=== PATIENT | male | born 1975 | race Caucasian/White ===

== ENCOUNTER 2025-04-27 17:02 | Inpatient (IN) | payer BC, SELFPAY ==
[2025-04-27] VITALS (23 sets, daily range): BP systolic 111–138; BP diastolic 72–82; PULSE 93–100; RESP 12–23; TEMP 36.8; O2SAT 92–98; BMI 29.3
--- NOTE | ~2025-04-27 | CT_ITS ---
CTA CHEST ABDOMEN PELVIS CLINICAL HISTORY: hx infrarenal AAA, lower abdominal pain . COMPARISON: CTA chest 01/05/2019 TECHNIQUE: Helical CT performed from thoracic inlet to symphysis pubis IV contrast information not listed in PACS Coronal, sagittal reformats. Multiplanar MIPS CT images acquired with automatic exposure control for dose reduction DLP: 971 mGy-cm FINDINGS: CHEST- Thoracic Aorta: No dissection. Fusiform ectasia of ascending segment at 4.5 cm. Pulmonary arteries: Normal caliber. Lungs/Pleura: Clear. Heart: Unremarkable. Tracheobronchial tree: Patent. Nodes: No enlarged nodes. Bones: No acute bony abnormality. Soft tissues: Unremarkable. ABDOMEN/PELVIS- CTA Abdominal aorta: No aneurysm or dissection. Common iliac arteries: Patent. External iliac arteries: Patent. Hypogastric arteries: Patent. CFAs: Patent. Proximal visualized SFAs and profundas: Patent. Celiac: Patent. Severe median arcuate ligament attenuation. SMA: Patent. ZENAIDA: Patent. Renal arteries: Patent. NON-CTA Liver: Steatosis. Gallbladder: Unremarkable. Spleen: Unremarkable. Pancreas: Unremarkable. Adrenal glands: Unremarkable. Kidneys: Right kidney- No hydronephrosis. No renal stones. Left kidney- No hydronephrosis. No renal stones. Circumaortic renal vein. Distal esophagus/stomach: Unremarkable. Small bowel loops: Normal caliber and wall thickness. Colon: Diverticula. Sigmoid wall thickening, surrounding inflammation, small regional free air Normal caliber and wall thickness. Normal RLQ appendix. Nodes: No enlarged nodes. Peritoneum: No ascites. No free air. Urinary bladder: Unremarkable. Prostate: Unremarkable. Bones: No acute bony abnormality. Soft tissues: Unremarkable. IMPRESSION: CHEST- 1. No acute cardiopulmonary findings. 2. 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 (Previous reported measurement of 4.8 cm inaccurate) ABDOMEN/PELVIS- 1. Sigmoid diverticulitis, complicated by perforation. No abscess. 2. No other acute abnormality. Reviewed, dictated and finalized at location R. IMPRESSION: CHEST- 1. No acute cardiopulmonary findings. 2. Fusiform ectasia of ascending thoracic aorta 4.5 cm not significantly gonzalez ed. (Previous reported measurement of 4.8 cm inaccurate) ABDOMEN/PELVIS- 1. Sigmoid diverticulitis, complicated by perforation. No abscess. 2. No other acute abnormality.
--- OUTSIDE RECORDS SUMMARY | 2025-04-27 17:58 | XMS_ITS | Encounter Summary ---
Author Organization [facility] Healthcare Address [address] [place] [address] Care Team Providers Care Nut Dehydrator Operator Name Role Phone No, Physician Primary Care Provider Chris Hercules MD Unavailable [phone] Unknown, Notinfile Primary Care Provider Unavail able Cassi Jennings MD Primary Care Provider Carlos De La Fuente MD Unavailable [phone] Encounter Details Date Type Department Care Team (Late st Contact Info) Description 02/01/2021 Telephone [facility] - Imaging [address] [place] [address] Transcribed Order, Provider Social History Tobacco Use Types Packs/Day Years Used Date Smoking Tobacco: Never Smokeless Tobacco: Never Alcohol Use Standard Drinks/Week Comments Yes 0 (1 standard drink = 0.6 oz pur e alcohol) occasional use Sex and Gender Information Value Date Recorded Sex Assigned at Not on file Legal Sex Male 9:33 AM CDT Gender Identity Male 05/20/2020 2:46 PM [employer] Sexual Orientation Straight 05/20/2020 2: 46 PM [employer] documented as of this encounter Plan of Treatment Not on file documented as of this encounter Visit Diagnoses Not on filedocumented in this encounter Care Teams Nut Dehydrator Operator Relationship Specialty Start Date End Date No, Physician PCP - General 01/02/18 03/13/22 Unknown, Notitamile PCP - General 03/14/22 07/12/24 Cassi Jennings MD [address] [address] PCP - General Family Medicine 07/13/24 Chris Hercules MD Consulting Physician Cardiology 02/02/21 02/21/25 Carlos De La Fuente MD [address] [address] Referring Physician Cardiology 02/22/25 documented as of this encounter
--- OUTSIDE RECORDS SUMMARY | 2025-04-27 17:58 | XMS_ITS | Clinical Summary ---
Author Organization [facility] [address] Address [address] [place] [address] Care Team Providers Care Junk Dealer Name Role Phone Cassi Jennings MD Primary Care Provider Carlos De La Fuente MD Unavailable [phone] Allergies Active Allergy Reactions Criticality Noted Date Comments Mushroom Diarrhea,Other (See comments) Low [address] (NexIUM) 20 mg capsule Take 1 capsule (20 mg total) by mouth daily before breakfast Active carvediloL (COREG) 25 mg tablet TAKE 1 TABLET(25 MG) BY MOUTH TWICE DAILY WITH MEALS 180 tablet 2 03/30/20 25 Active carvediloL (COREG) 25 mg tablet Take 1 tablet (25 mg total) by mouth 2 (two) times a day with meals 180 tablet 2 07/13/19 25 025 Discontinued Active Problems Problem Noted Date Diagnosed Date Mixed hyperlipidemia 03/06/2022 H/O cardiac arrest 02/20/2021 Elevated blood pressure reading 08/03/2019 H/O cardiomyopathy 07/22/2018 VF (ventricular fibrillation) 04/08/2018 Nonsustained ventricular tachycardia 04/08/2018 Nonischemic cardiomyopathy 04/08/2018 Ascending aortic aneurysm 04/08/2018 Bicuspid aortic valve 04/08/2018 Aortic insufficiency due to bicuspid aortic valv e 04/08/2018 ICD (implantable cardioverte r-defibrillator), single, in situ 01/03/2018 Overview (05/25/2018): [employer] VVI Inogen ICD implanted on 01/03/18 for VF. Fannie - Eeorzvhw-Xuglliq-Jxzq Seizure disorder 01/02/2018 Assessment & Plan (01/02/2018 2:21 PM CDT): -no previous hx seizure disorder but at least 2 witness seizures 12/28. Seen by neurology at OSH; EEG unremarkable; started on Keppra -will continue Keppra bid GERD (gastroesophageal reflux disease) 8 Assessment & Plan (01/02/2018 2:22 PM CDT): -asymptomatic; continue ppi Resolved Problems Problem Noted Date Diagnosed Date Resolved Date Dyslipidemia 02/20/2021 03/18/2023 Cardiac arrest, cause unspecified 01/02/2018 03/18/2023 Assessment & Plan (01/02/2018 2:21 PM CDT): -cause unclear; reported v fib arrest s/p defib 12/28; currently asymptomatic -tele, EP consult -cardiac MRI -EP study/possible AICD in am -cbc, bmp, tsh, ua, mag Encounters Date Type Department Care Team Description 02/22/2025 10:30 AM CDT Office Visit Cardiovascular and Thoracic Surgery [address] [facility] [facility] [place] [address] Artem Hawthorne MD Aneurysm of ascending aorta without rupture (Primary Dx); Aortic insufficiency due to bicuspid aortic valve 02/22/2025 9:16 AM CDT - 02/22/2025 11:59 PM CDT Hospital Encounter [facility] - Imaging [address] [place] [address] Aortic insufficiency due to bicuspid aortic valve; VF (ventricular fibrillation); Aneurysm of ascending aorta without rupture; H/O cardiomyopathy; Nonsustained ventricular tachycardia (HCC); Nonischemic cardiomyopathy (HCC); Bicuspid aortic valve; H/O cardiac arrest Discharge Disposition: Discharge to home or self care 02/22/2025 8:32 AM CDT - 02/22/2025 11:59 PM CDT Hospital Encounter [facility] Cardiac Testing [address] [facility] [place] [address] Aortic insufficiency due to bicuspid aortic valve; VF (ventricular fibrillation); Aneurysm of ascending aorta without rupture; H/O cardiomyopathy; Nonsustained ventricular tachycardia (HCC); Nonischemic cardiomyopathy (HCC); Bicuspid aortic valve; H/O cardiac arrest Discharge Disposition: Discharge to home or self care 02/08/2025 8:30 AM CDT Office Visit [facility] Cardiology [address] [place] [address] Carlos De La Fuente MD ICD (implantable cardioverter-defibrill ator), single, in situ (Primary Dx); H/O cardiomyopathy; Aortic insufficiency due to bicuspid aortic valve 02/02/2025 Orders Only Ar[facility] [address] [facility] [address] [facility] [address] [place] [address] Oh Art MD VF (ventricular fibrillation) (HCC) (Primary Dx) 02/01/2025 12:45 PM CDT Ancillary Procedure [facility] [address] [facility] [address] [place] [address] ICD (implantable cardioverter-defibrill ator), single, in situ (Primary Dx); VF (ventricular fibrillation) (HCC) from Last 3 Months Surgical History Surgery Date Site/Laterality Comments CARDIAC CATHETERIZATION INSERT / REPLACE / REMOVE PACEMAKER 01/03/2018 [employer] HERNIA REPAIR May 24 VASECTOMY 2011 Medical History Medical History Date Comments Cardiac arrest GERD (gastroesophageal reflux disease) Cardiomyopathy Ventricular tachycardia (HCC) Non-ischemic cardiomyopathy (HCC) Aortic aneurysm Congenital heart disorder Valvular disease Heart disease 2018 Kidney stone once in 2006 Family History Medical History Relation Name Comments Hypertension Brother 1 Hypertension Brother 2 Elvis [place] Hypertension Father Casey Barber Diabetes Maternal Grandmother Lay Burks Hypertension Mother Qing Stacy Alzheimer's disease Paternal Grandmother Soco Barber Memory loss Paternal Grandmother Soco Barber Relation Name Status Comments Brother 1 Alive Brother 2 Elvis [place] Alive Father Casey Stacy Alive Maternal Grandmother Lay Burks Mother Qing Stacy Alive Paternal Grandmother Soco Barber Alive Social History Tobacco Use Types Packs/Day Years Used Date Smoking Tobacco: Never Cigarettes 0.3 0.3 Cigars Passive Smoke Exposure: Yes Smokeless Tobacco: Never Tobacco Cessation:Counseling Given: Not Answered Comments:Occasional cigar Alcohol Use Standard Drinks/Week Comments Yes 0 (1 standard drink = 0.6 oz pur e alcohol) occasional use AUDIT-C Answer Date Recorded Q1: How often do you have a drink containing alc ohol? 2-4 times a month 02/28/2023 Q2: How many drinks containi ng alcohol do you have on a typical day when you are drinking? 1 or 2 02/28/2023 Q3: How often do you have si x or more drinks on one occasion? Never 02/28/2023 Sex and Gender Information Value Date Recorded Sex Assigned at Not on file Legal Sex Male 9:33 AM CDT Gender Identity Male 05/20/2020 2:46 PM CASING SOAKER Sexual Orientation Straight 05/20/2020 2: 46 PM CASING SOAKER Obstetrics History Last Filed Vital Signs Vital Sign Reading Time Taken Comments Blood Pressure 123/82 02/22/2025 11:20 AM CDT Pulse 55 02/22/2025 11:20 AM CDT Regu lar Temperature 36.5 C (97.7 F) 01/25/2020 9:06 AM CDT Respiratory Rate 16 02/22/2025 11:20 AM CDT Oxygen Saturation 96% 02/08/2025 8:14 AM CDT Inhaled Oxygen Concentration - - Weight 108.9 kg (240 lb) 02/22/2025 11:20 AM CDT Height 195.6 cm (6' 5) 02/08/2025 8:14 AM CDT Body Mass Index 28.46 02/08/2025 8:14 AM CDT Plan of Treatment Health Maintenance Due Date Last Done Comments Colon Cancer Screening-Colonoscopy 1975 Depression Screening 1975 Hepatitis C Screening 1975 Regular Well Visit/Exam 18-64 1993 Influenza Vaccine (#1) 2025 7, 03/22/2016, 03/21/2016, Additional history exists DTaP/Tdap/Td Vaccine (3 - Td or Tdap) 01/05/2034 01/06/2024, 01/18/2009, 01/09/1999 Hepatitis B Screening Completed 09/20/2014 , 12/18/2013, 11/10/2013 Pneumococcal vaccine <65 Aged Out No longer eligible based on patient's age to complete this topic Medical Devices Implanted Type Area Music Executive Device Identifier Shelf Expiration Date Model / Serial / Lot [employer] C.R.M. D140 Inogen Enduralife Easyview 5.37x7.36cm Implantable Extend - [id number] - [id number] Implanted:Qty: 1 on 01/03/2018 by Abhay Greco MD at [facility] ICD Left: Heart [employer] C.R.M. [id number] 02/13/2018 D140 / [id number] / [employer] Cassie 296 Endotak Dexter 64cm 4 Site 2 Coil Active Df-4 Terminal - [id number] Implanted:Qty: 1 on 01/03/2018 by Abhay Greco MD at [facility] Lead Left: Heart [employer] Cassie [id number] 07/18/2018 296 / / Procedures Procedure Name Priority Date/Time Associated Diagnosis Comments CTA CHEST W WO CONTRAST Schedule Routine, Read Routine (OP Routine) 02/22/2025 9:55 AM CDT Aortic insufficiency due to bicuspid aortic valve VF (ventricular fibrillation) Aneurysm of ascending aorta without rupture H/O cardiomyopathy Nonsustained ventricular tachycardia (HCC) Nonischemic cardiomyopathy (HCC) Bicuspid aortic valve H/O cardiac arrest TRANSTHORACIC ECHO (TTE) COMPLETE W DOPPLER/CF WO CONTRAST Routine 02/22/2025 9:17 AM CDT Aortic insufficiency due to bicuspid aortic valve VF (ventricular fibrillation) Aneurysm of ascending aorta without rupture H/O cardiomyopathy Nonsustained ventricular tachycardia (HCC) Nonischemic cardiomyopathy (HCC) Bicuspid aortic valve H/O cardiac arrest DEVICE CHECK - REMOTE Routine 02/01/2025 2:26 PM CDT VF (ventricular fibrillation) from Last 3 Months Results * CTA Chest W WO Contrast (02/22/2025 9:55 AM CDT) Anatomical Region Laterality Modality Chest N/A Computed Tomogra phy 02/22/2025 10:2 7 AM CDT Impressions 02/22/2025 10:27 AM CDT No change in ascending aortic dilatation with maximal measurement of the aorta at 4.5 x 4.6 cm at the level of the main pulmonary artery. No evidence for instability. Electronically signed by: Alexis Amor M.D. Narrative 02/22/2025 10:27 AM CDT Examination: CT angiogram of the chest with and without intravenous contrast HISTORY: Evaluate dilated ascending aorta TECHNIQUE: Standard pre and postcontrast CT of the chest was performed prior to and after the administration of 120 mL of Optiray 350 intravenous contrast. Images were sent to three-dimensional workstation for further evaluation. FINDINGS: Comparison is made to a prior CT of 08/14/2022. No supraclavicular, axillary or mediastinal lymphadenopathy is seen. Note is made of a pacemaker with the lead overlying the right ventricle. There is no pulmonary embolism. No pleural or pericardial effusion. The heart size is mildly enlarged but unchanged when compared to the prior study. There is no evidence of aortic instability. Again seen is dilatation of the ascending aorta. The following measurements are obtained orthogonal to the long axis: 1. Sinuses of Valsalva 3.9 x 4.3 x 4.3 cm. Preliminary measured today, these numbers are unchanged. 2. Sinotubular junction 4.2 x 4.0 cm unchanged. 3. Ascending aorta at the level of the main pulmonary artery unchanged at 4.5 x 4.6 cm. 4. Descending aorta 2.5 x 2.4 cm. Images of the upper abdomen show normal adrenal glands. The bone windows are unremarkable. Procedure Note Alexis Amor MD - 02/22/2025 Examination: CT angiogram of the chest with and without intravenous contrast HISTORY: Evaluate dilated ascending aorta TECHNIQUE: Standard pre and postcontrast CT of the chest was performed prior to and after the administration of 120 mL of Optiray 350 intravenous contrast. Images were sent to three-dimensional workstation for further evaluation. FINDINGS: Comparison is made to a prior CT of 08/14/2022. No supraclavicular, axillary or mediastinal lymphadenopathy is seen. Note is made of a pacemaker with the lead overlying the right ventricle. There is no pulmonary embolism. No pleural or pericardial effusion. The heart size is mildly enlarged but unchanged when compared to the prior study. There is no evidence of aortic instability. Again seen is dilatation of the ascending aorta. The following measurements are obtained orthogonal to the long axis: 1. Sinuses of Valsalva 3.9 x 4.3 x 4.3 cm. Preliminary measured today, these numbers are unchanged. 2. Sinotubular junction 4.2 x 4.0 cm unchanged. 3. Ascending aorta at the level of the main pulmonary artery unchanged at 4.5 x 4.6 cm. 4. Descending aorta 2.5 x 2.4 cm. Images of the upper abdomen show normal adrenal glands. The bone windows are unremarkable. IMPRESSION: No change in ascending aortic dilatation with maximal measurement of the aorta at 4.5 x 4.6 cm at the level of the main pulmonary artery. No evidence for instability. Electronically signed by: Alexis Amor M.D. us Theresa Verduzco HYDROMETEOROLOGIST IMG CT PROCEDURES Final R esult * TRANSTHORACIC ECHO (TTE) COMPLETE W DOPPLER/CF WO CONTRAST (02/22/2025 9:17 AM CDT) Estimated EF 50-55 % CONS SCIMAGE Anatomical Region Laterality Modality Ultrasound 02/22/2025 8:35 AM CDT Narrative 02/22/2025 10:00 AM CDT [address] [place] [address] ECHOCARDIOGRAM Patient Name: PRASANNA ABRBER : 1975 (49y 9m) Gender: M Study Date: 02/22/2025 08:35:22 AM Ht(Inch): 77 Wt(Lb): 248.02 BSA: 2.47 Elevator Operator Service: Location: OPT Order Provider: THERESA VERDUZCO BMI: 29.41 BP: 122/78 Ref Provider: THERESA VERDUZCO - PROCEDURES: Echocardiographic Report: Transthoracic Echocardiogram with complete 2D, M-Mode, Spectral and Color Flow Doppler examination. INDICATIONS: Q23.1 Congenital insufficiency of aortic valve, Q23.81 Bicuspid aortic valve, I49.01 Ventricular fibrillation, I71.21 Aneurysm of the ascending aorta, without rupture, Z86.79 Personal history of other diseases of the circulatory system, I47.29 Other ventricular tachycardia, I42.8 Other cardiomyopathies, Q23.81 Bicuspid aortic valve, and Z86.74 Personal history of sudden cardiac arrest. MEASUREMENTS: 2D/MM Value Range Doppler Value Range IVSd 2D 1.15 cm [ 0.60 - 1.00 ] AV Peak David 1.44 m/s [ 1.00 - 1.70 ] LVIDd 2D 5.75 cm [ 4.20 - 5.80 ] AV Peak PG 8.3 mmHg LVIDs 2D 4.25 cm [ 2.50 - 4.00 ] AV Mean PG 4.4 mmHg LVPWd 2D 1.00 cm [ 0.60 - 1.00 ] AV VTI 27.2 cm Estimated EF 50-55 % REID VTI 3.4 cm2 LA Dimension 2D 3.44 cm [ 3.00 - 4.00 ] LVOT Peak David 0.85 m/s [ 0.70 - 1.10 ] AoR Diam 2D 3.77 cm [ 3.10 - 3.70 ] LVOT Diam 2.4 cm AoR Diam 2D Index 1.53 LVOT Peak PG 2.9 mmHg RA Volume 16.30 ml LVOT VTI 20.7 cm LA Volume Index 20.60 ml/m2 [ 16.00 - 34.00 ] MV Peak PG 2.9 mmHg TAPSE 1.84 cm [ 1.71 - 5.00 ] MV Mean PG 1.3 mmHg MV E Peak David 0.8 m/s [ 0.6 - 1.3 ] MV A Peak David 0.7 m/s [ 1.0 - 1.2 ] MV PHT 94.0 ms [ 20.0 - 100.0 ] MV Decel Time 200.0 ms [ 104.0 - 258.0 ] MVA PHT 2.3 ms MV E/A Ratio 1.1 TR Peak David 2.0 m/s [ 1.0 - 2.8 ] TR Peak PG 20 mmHg RVSP 22.7 mmHg [ 10.0 - 36.0 ] RA Pressure 3.0 mmHg PV Peak David 0.9 m/s [ 0.4 - 0.8 ] PV Peak PG 3.1 mmHg Lat E` David 0.11 m/s [ 0.10 - 0.15 ] Septal E` 0.08 m/s [ 0.08 - 0.15 ] E/E` 7.27 RV S` 0.12 m/s 2D/MM Value Range Doppler Value Range - FINDINGS: BP: Blood pressure: 122/78 mmHg. Left Ventricle: Low normal global left ventricular systolic function. Ejection Fraction is estimated at 50-55 %. Normal left ventricular diastolic function. Mild enlargement of left ventricle (LVIDd 5.75cm, LVIDs 4.25cm). Mild concentric left ventricular hypertrophy. GLPS is mildly reduced (-14.3%). Right Ventricle: Normal right ventricular systolic function. Normal right ventricular size. Device wire(s) noted in RA/RV. Left Atrium: The left atrium is normal in size. Right Atrium: The right atrium is normal in size. Linear artifact in right atrium suggestive of catheter, pacer lead, or ICD lead. Atrial Septum: Normal appearing atrial septum. Cannot exclude PFO by atrial septal color Doppler interrogation. Mitral Valve: Normal appearance of the mitral valve leaflets. Mitral stenosis is absent. Mild mitral valve regurgitation. Aortic Valve: Bicuspid aortic valve. Aortic cusps appear mildly calcified. There is no aortic stenosis. Moderate aortic valve regurgitation (AR PHT 450 msec); consider advanced imaging (JAUN vs CTA) to clarify severity of AV disease if clinically indicated. Tricuspid Valve: Normal appearance of the tricuspid leaflets. Mild tricuspid regurgitation. Normal right ventricular systolic pressure. Pulmonic Valve: Grossly normal appearing pulmonic valve. Pulmonic valve not well visualized. There is no pulmonic stenosis. Trace pulmonic regurgitation. Pericardium: Normal appearing pericardial thickness. No significant pericardial effusion. Aortic Root and Aorta: Mild aortic root enlargement (3.8cm at SoV). Mild ascending aortic enlargement (4.6 cm). Aortic Arch: Grossly normal aortic arch. IVC: Normal appearance of the inferior vena cava. CONCLUSIONS: 1. Low normal global left ventricular systolic function. Ejection Fraction is estimated at 50-55 %. Normal left ventricular diastolic function. Mild enlargement of left ventricle (LVIDd 5.75cm, LVIDs 4.25cm). Mild concentric left ventricular hypertrophy. GLPS is mildly reduced (-14.3%). 2. Normal right ventricular systolic function. Normal right ventricular size. Device wire(s) noted in RA/RV. 3. Normal appearance of the mitral valve leaflets. Mitral stenosis is absent. Mild mitral valve regurgitation. 4. Bicuspid aortic valve. Aortic cusps appear mildly calcified. There is no aortic stenosis. Moderate aortic valve regurgitation (AR PHT 450 msec); consider advanced imaging (JAUN vs CTA) to clarify severity of AV disease if clinically indicated. 5. Normal appearance of the tricuspid leaflets. Mild tricuspid regurgitation. Normal right ventricular systolic pressure. 6. Mild aortic root enlargement (3.8cm at SoV). Mild ascending aortic enlargement (4.6 cm). Electronically Signed By: Rasta Zhong MD PhD 02/22/2025 9:59:32 AM CDT Procedure Note Rasta Zhong MD PhD - 02/22/2025 [address] [place] [address] ECHOCARDIOGRAM Patient Name: PRASANNA BARBER : 1975 (49y 9m) Gender: M Study Date: 02/22/2025 08:35:22 AM Ht(Inch): 77 Wt(Lb): 248.02 BSA: 2.47 Elevator Operator Service: Location: OPT Order Provider: THERESA VERDUZCO BMI: 29.41 BP: 122/78 Ref Provider: THERESA VERDUZCO - PROCEDURES: Echocardiographic Report: Transthoracic Echocardiogram with complete 2D,M-Mode, Spectral and Color Flow Doppler examination. INDICATIONS: Q23.1 Congenital insufficiency of aortic valve, Q23.81 Bicuspid aorticvalve, I49.01 Ventricular fibrillation, I71.21 Aneurysm of the ascending aorta, withoutrupture, Z86.79 Personal history of other diseases of the circulatory system, I47.29 Otherventricular tachycardia, I42.8 Other cardiomyopathies, Q23.81 Bicuspid aortic valve,and Z86.74 Personal history of sudden cardiac arrest. MEASUREMENTS: 2D/MM Value Range DopplerValue Range IVSd 2D 1.15 cm [ 0.60 - 1.00 ] AV Peak Vel1.44 m/s [ 1.00 - 1.70 ] LVIDd 2D 5.75 cm [ 4.20 - 5.80 ] AV Peak PG8.3 mmHg LVIDs 2D 4.25 cm [ 2.50 - 4.00 ] AV Mean PG4.4 mmHg LVPWd 2D 1.00 cm [ 0.60 - 1.00 ] AV VTI27.2 cm Estimated EF 50-55 % REID VTI3.4 cm2 LA Dimension 2D 3.44 cm [ 3.00 - 4.00 ] LVOT Peak Vel0.85 m/s [ 0.70 - 1.10 ] AoR Diam 2D 3.77 cm [ 3.10 - 3.70 ] LVOT Diam2.4 cm AoR Diam 2D Index 1.53 LVOT Peak PG2.9 mmHg RA Volume 16.30 ml LVOT VTI20.7 cm LA Volume Index 20.60 ml/m2 [ 16.00 - 34.00 ] MV Peak PG2.9 mmHg TAPSE 1.84 cm [ 1.71 - 5.00 ] MV Mean PG1.3 mmHg MV E Peak David 0.8 m/s [ 0.6 - 1.3 ] MV A Peak David 0.7 m/s [ 1.0 - 1.2 ] MV PHT 94.0 ms [ 20.0 - 100.0 ] MV Decel Time 200.0 ms [ 104.0 - 258.0 ] MVA PHT 2.3 ms MV E/A Ratio 1.1 TR Peak David 2.0 m/s [ 1.0 - 2.8 ] TR Peak PG 20 mmHg RVSP 22.7 mmHg [ 10.0 - 36.0 ] RA Pressure 3.0 mmHg PV Peak David 0.9 m/s [ 0.4 - 0.8 ] PV Peak PG 3.1 mmHg Lat E` David 0.11 m/s [ 0.10 - 0.15 ] Septal E` 0.08 m/s [ 0.08 - 0.15 ] E/E` 7.27 RV S` 0.12 m/s 2D/MM Value Range DopplerValue Range - FINDINGS: BP: Blood pressure: 122/78 mmHg. Left Ventricle: Low normal global left ventricular systolic function.Ejection Fraction is estimated at 50-55 %. Normal left ventricular diastolic function. Mildenlargement of left ventricle (LVIDd 5.75cm, LVIDs 4.25cm). Mild concentric leftventricular hypertrophy. GLPS is mildly reduced (-14.3%). Right Ventricle: Normal right ventricular systolic function. Normal rightventricular size. Device wire(s) noted in RA/RV. Left Atrium: The left atrium is normal in size. Right Atrium: The right atrium is normal in size. Linear artifact in rightatrium suggestive of catheter, pacer lead, or ICD lead. Atrial Septum: Normal appearing atrial septum. Cannot exclude PFO byatrial septal color Doppler interrogation. Mitral Valve: Normal appearance of the mitral valve leaflets. Mitralstenosis is absent. Mild mitral valve regurgitation. Aortic Valve: Bicuspid aortic valve. Aortic cusps appear mildly calcified.There is no aortic stenosis. Moderate aortic valve regurgitation (AR PHT 450 msec);consider advanced imaging (JAUN vs CTA) to clarify severity of AV disease if clinicallyindicated. Tricuspid Valve: Normal appearance of the tricuspid leaflets. Mildtricuspid regurgitation. Normal right ventricular systolic pressure. Pulmonic Valve: Grossly normal appearing pulmonic valve. Pulmonic valvenot well visualized. There is no pulmonic stenosis. Trace pulmonic regurgitation. Pericardium: Normal appearing pericardial thickness. No significantpericardial effusion. Aortic Root and Aorta: Mild aortic root enlargement (3.8cm at SoV). Mildascending aortic enlargement (4.6 cm). Aortic Arch: Grossly normal aortic arch. IVC: Normal appearance of the inferior vena cava. CONCLUSIONS: 1. Low normal global left ventricular systolic function. Ejection Fractionis estimated at 50-55 %. Normal left ventricular diastolic function. Mild enlargementof left ventricle (LVIDd 5.75cm, LVIDs 4.25cm). Mild concentric left ventricularhypertrophy. GLPS is mildly reduced (-14.3%). 2. Normal right ventricular systolic function. Normal right ventricularsize. Device wire(s) noted in RA/RV. 3. Normal appearance of the mitral valve leaflets. Mitral stenosis isabsent. Mild mitral valve regurgitation. 4. Bicuspid aortic valve. Aortic cusps appear mildly calcified. There isno aortic stenosis. Moderate aortic valve regurgitation (AR PHT 450 msec); consideradvanced imaging (JAUN vs CTA) to clarify severity of AV disease if clinicallyindicated. 5. Normal appearance of the tricuspid leaflets. Mild tricuspidregurgitation. Normal right ventricular systolic pressure. 6. Mild aortic root enlargement (3.8cm at SoV). Mild ascending aorticenlargement (4.6 cm). Electronically Signed By: Rasta Zhong MD PhD 02/22/2025 9:59:32 AM CDT Theresa Verduzco NP CV ECHO PROCEDURES Final Result * DEVICE CHECK - REMOTE (02/01/2025 2:26 PM CDT) Anatomical Region Laterality Modality Other Narrative 02/15/2025 10:40 AM CDT Table formatting from the original result was not included. ICD CHECK (REMOTE) Patient ID: Prasanna Barber is a 49 y.o. male This patient received a [employer] ICD. They had a remote transmission on 02/01/2025. Device implant indications: VF Interrogation of the patient's device demonstrates the following: Presenting EGM: V sensing @ 80 bpm Original Device Settings Right Ventricle Sensitivity (mV) Auto mV Pacing Outputs 2.5 V @ 0.5 ms Testing Measurements Right Ventricle Sensitivity (mV) 22.8 mV Impedence (Ohms) 649 ohms High Voltage Impedence 60 ohms Pace Threshold Not done Pacing % 0 % Battery Status: 9.5 years to ABRIL with Charge Time 10.4 seconds Episodes last 90 days/Comments: No ventricular high rate NORMAL DEVICE FUNCTION PROGRAMMED Medications: Anti-coagulant(s): None Anti-arrhythmic(s): Coreg 25 twice daily PLAN: 1) [employer] ICD evaluation. 2) [employer] remote transmission scheduled in 3 months. 3) Programming appropriate for device measurements Leticia Martinez RN Oh Art MD CV CARDIAC SERVICES PRO CEDURES Final Result from Last 3 Months Insurance [facility] [employer] [facility] [employer] Advance Directives For more information, please contact: [phone] * Full Code (Latest Code Status on File) Date Activated Date Inactivated Comments 01/02/2018 4:18 PM 01/04/2018 4:40 PM Care Teams Junk Dealer Relationship Specialty Start Date End Date Cassi Jennings MD [address] [place] [id number] PCP - General Family Medicine 07/13/24 Carlos De La Fuente MD [address] [place] [id number] Referring Physician Cardiology 02/22/25
--- OUTSIDE RECORDS SUMMARY | 2025-04-27 17:58 | XMS_ITS | Encounter Summary ---
Author Organization [facility] Address [address] [place] [address] Care Team Providers Care Commercial Leasing Manager Name Role Phone Cassi Jennings MD Primary Care Provider + Carlos De La Fuente MD Unavailable [phone] Oh Art MD Unavailable Encounter Details Date Type Department Care Team (Late st Contact Info) Description 01/29/2024 Prep for Procedure [facility] Day Services [address] [place] [address] [place] [address] [address] Social History Tobacco Use Types Packs/Day Years Used Date Smoking Tobacco: Never Cigars Passive Smoke Exposure: Yes Smokeless Tobacco: Never Comments:Occasional Cigar Alcohol Use Standard Drinks/Week Comments Yes 2 (1 standard drink = 0.6 oz pur e alcohol) social PHQ-2 Answer Date Recorded Patient Health Questionnaire-2 Score 1 01/06/2024 Sex and Gender Information Value Date Recorded Sex Assigned at Not on file Legal Sex Male 7:15 PM CDT Gender Identity Not on file Sexual Orientation Not on file documented as of this encounter Plan of Treatment Upcoming Encounters Date Type Department Care Team (Late st Contact Info) Description 05/07/2025 8:30 AM SUPER[employer]OR [employer] Office Visit [facility] Family Medicine - [place] [address] [facility] [address] [place] [address] Cassi Jennings MD [address] [place] [address] documented as of this encounter Results * ECG 12-Lead (01/31/2024 10:08 AM CDT) 01/31/2024 10:0 8 AM CDT Narrative [facility] ([facility]) RAD - 01/31/2024 5:18 PM CDT [facility] Test Date: 2024-01-31 Pat Name: CECILY BALTIMORE Department: 85 Room: Gender: Male Netezza Architect: : 1975 Requested By: BRIGHT ACEVEDO Order Number: [id number] Reading MD: Matthias Prieto Measurements Intervals [place] Rate: 65 P: 51 ND: 199 QRS: 42 QRSD: 102 T: 40 QT: 382 QTc: 398 Interpretive Statements SINUS RHYTHM No previous ECG available for comparison Procedure Note Matthias Prieto MD - 01/31/2024 [facility] Test Date: 2024-01-31 Pat Name: CECILY BARBER Department: 85 Room: Gender: Male Netezza Architect: : 1975 Requested By: BRIGHT ACEVEDO Order Number: [id number] Reading : Matthias Prieto Measurements Intervals [place] Rate: 65 P: 51 ND: 199 QRS: 42 QRSD: 102 T: 40 QT: 382 QTc: 398 Interpretive Statements SINUS RHYTHM No previous ECG available for comparison us Bright Acevedo MD ECG ORDERABLES Final Result [facility] ([facility]) RAD * MRSA SCREENING (01/31/2024 9:43 AM CDT) SPEC DESCRIPTION NASAL 01/31/2024 9:42 AM CDT [facility] SPECIAL REQUESTS NO SPECIAL REQUEST 01/31/2024 9:42 AM CDT [facility] CULTURE RESULT NO METHICILLIN RESISTANT STAPHYLOCOCCUS AUREUS ISOLATED 02/01/2024 2:18 PM CDT [facility] SPECIMEN FROM INTERNAL NOSE / Unknown 01/31/2024 9:43 AM CDT 01/31/2024 9:44 AM CDT us Bright Acevedo MD MICROBIOLOGY - GENERAL ORDERABLE S Final Result [facility] [address] [place] [address], [place] [phone] [facility] [address] [place] [address], [place] [phone] documented in this encounter Visit Diagnoses Diagnosis Preop testing- Primary Preoperative examination, unspecified Preop testing Preoperative examination, unspecified documented in this encounter Additional Health Concerns Assessment Noted Time PHQ-9 Depression Total Score: 4 01/06/20 24 12:09 PM CDT documented as of this encounter Care Teams Commercial Leasing Manager Relationship Specialty Start Date End Date Cassi Jennings MD [address] [place] [address] PCP - General FAMILY PRACTICE 01/06/24 Carlos De La Fuente MD [address] [address] CARDIOVASCULAR DISEASE 05/01/24 Oh Art MD [address] [facility] [address], [place] [address] CARDIAC ELECTROPHYSIOLOGY 05/04/24 documented as of this encounter
--- OUTSIDE RECORDS SUMMARY | 2025-04-27 17:58 | XMS_ITS | Encounter Summary ---
Author Organization [facility] Address [address] [place] [address] Care Team Providers Care Specification Writer Name Role Phone No, Physician Primary Care Provider [phone] Chris Hercules MD Unavailable [phone] Unknown, Notinfile Primary Care Provider Unavail able Cassi Jennings MD Primary Care Provider Carlos De La Fuente MD Unavailable [phone] Encounter Details Date Type Department Care Team (Late st Contact Info) Description 01/27/2020 Telephone [facility] - Imaging [address] [place] [address] Transcribed Order, Provider Social History Tobacco Use Types Packs/Day Years Used Date Smoking Tobacco: Never Smokeless Tobacco: Never Alcohol Use Standard Drinks/Week Comments Yes 0 (1 standard drink = 0.6 oz pur e alcohol) occasional use Sex and Gender Information Value Date Recorded Sex Assigned at Not on file Legal Sex Male 9:33 AM CDT Gender Identity Male 05/20/2020 2:46 PM CERTIFIED MEDICAL ASSISTANT Sexual Orientation Straight 05/20/2020 2: 46 PM CERTIFIED MEDICAL ASSISTANT documented as of this encounter Plan of Treatment Not on file documented as of this encounter Visit Diagnoses Not on filedocumented in this encounter Care Teams Specification Writer Relationship Specialty Start Date End Date No, Physician PCP - General 01/02/18 03/13/22 Unknown, Notinfile PCP - General 03/14/22 07/12/24 Cassi Jennings MD [address] [address] PCP - General Family Medicine 07/13/24 Chris Hercules MD Consulting Physician Cardiology 02/02/21 02/21/25 Carlos De La Fuente MD [address] [address] Referring Physician Cardiology 02/22/25 documented as of this encounter
--- OUTSIDE RECORDS SUMMARY | 2025-04-27 17:58 | XMS_ITS | Clinical Summary ---
Author Organization [facility] Address [address] [place] [address] Care Team Providers Care Chemistry Intern Name Role Phone Unavailable Primary Care Provider Unavailabl e Source Comments [facility],non-owned Affiliates and Associated Physician Practices is amultiple site organization consisting of ambulatory clinics and hospital sitesin [place], [place], [place] and [place]. This disclosure is being madepursuant to the Care Everywhere program and may not contain all information available regarding this patient. Last updated 18.[facility] [employer] Social History Tobacco Use Types Packs/Day Years Used Date Smoking Tobacco: Never Assessed Sex and Gender Information Value Date Recorded Sex Assigned at Not on file Legal Sex Male 8:49 AM CDT Gender Identity Not on file Sexual Orientation Not on file Plan of Treatment Health Maintenance Due Date Last Done Comments COLON MONITORING 1975 COLONOSCOPY - COLON CA SCREENING 1975 CT COLONOGRAPHY - COLON CA SCREENING 1975 FIT - COLON CA SCREENING 1975 FLEX SIG - COLON CA SCREENING 1975 LIPID TESTING 1975 HIV SCREENING 1990 HEPATITIS C SCREENING 04/27/1993 DTAP/TDAP/TD VACCINES (1 - Tdap) 1994 HEPATITIS B VACCINE (1 of 3 - 19+ 3-dose series) 1994 DEPRESSION SCREENING 07/01/2024 COVID-19 VACCINE (1 - 2023- season) 2025 INFLUENZA VACCINE (#1) 2025 7, 03/21/2016, 07/21/2015, Additional history exists ZOSTER VACCINE (1 of 2) 2025 COLOGUARD (AGES 45-75) - COLON CA SCREENING 02/03/2027 02/04/2024 Colorectal Cancer Screening 02/03/2027 HIB VACCINE Aged Out No longer eligi ble based on patient's age to complete this topic HPV VACCINE Aged Out No longer eligi ble based on patient's age to complete this topic MENINGOCOCCAL (Group B) VACCINE SHARED DECISION-MAKING Aged Out No longer eligible based on patient's age to complete this topic MENINGOCOCCAL GROUPS A/C/Y/W VACCINE Aged Out No longer eligible based on patient's age to complete this topic Insurance [employer]
--- OUTSIDE RECORDS SUMMARY | 2025-04-27 17:58 | XMS_ITS | Clinical Summary ---
Author Organization [facility] Address [facility] [place] [address] Care Team Providers Care Truck Sales Representative Name Role Phone Cassi Jennings MD Primary Care Provider + Carlos De La Fuente MD Unavailable [phone] Oh Art MD Unavailable [phone] Allergies Active Allergy Reactions Criticality Noted Date Comments Mushrooms Diarrhea,GI Upset 01/06/2024 Medications aspirin EC (ECOTRIN) 81 MG tablet Take 1 tablet (81 mg total) by mouth daily. Active carvedilol (COREG) 25 MG tablet Take 1 tablet (25 mg total) by mouth 2 (two) times daily. 01/28/2018 Active esomeprazole (NEXIUM) 20 MG capsule Take 1 capsule (20 mg total) by mouth daily. Active oxyCODONE-aceta minophen (PERCOCET) 5-325 MG tabletIndicatio ns:Acute Pain < 7 Day Supply Take 1 tablet by mouth every 4 (four) hours as needed. Indications: Acute Pain < 7 Day Supply 15 tablet 05/11/2024 Active Active Problems Problem Noted Date Diagnosed Date Non-recurrent unilateral ing uinal hernia without obstruction or gangrene 01/28/2024 Prediabetes 01/07/2024 Thoracic aortic aneurysm without rupture 024 Overview (01/06/2024): BJC: 4.8 cm by CTA 08/2022. This is slightly enlarged compared to prior study 2020. Right groin hernia 01/02/2022 H/O cardiac arrest 02/20/2021 Aortic insufficiency due to bicuspid aortic valv e 04/08/2018 Bicuspid aortic valve 04/08/2018 Nonischemic cardiomyopathy 04/08/2018 Overview (01/06/2024): Most recent echo 01/2023 EF 55-60%, normal LV size LV end systolic dimension 3.8 cm, [id number]-[id number] AI, no , bicuspid aortic valve ascending aorta 4.3 cm sinus of Valsalva 4.1 cm mildly dilated. ICD (implantable cardioverte r-defibrillator), single, in situ 01/03/2018 Overview (01/06/2024): Emmet [employer]at[employer] Wireless VVI Inogen ICD [facility] 01/03/18 [facility]-esophageal reflux disease without esophag itis 01/02/2018 Overview (01/06/2024): Last Assessment & Plan: -asymptomatic; continue ppi Immunizations Immunization Administration Dates Next Due Anthrax Vaccine 02/02/2004, 0,08/23/1999,08/09 H1N1 Injectable 2009 Influenza 08/01/2009 Hepatitis A (Havrix 14[address]U) 08/09/1999,1998 Hepatitis B (Generic: Adult) 09/20/2014,12/19/19 14,11/10/2013 Influenza (FluMist) 04/03/2013,07/14/2007 Influenza (Generic) 03/21/2016, 6,04/18/2014,05/15,03/20/2011,05/26/2010,04/21/2009 ,06/15/2008,06/10/2006,05/22/2005,07/03,05/14/2003,04/09/2002, 1,06/21/2000,04/13/1999 Influenza Adult (Generic) 06/11/2017 MMR (MMRII) 01/13/1999 Meningococcal (Menomune) 08/09/1999 Polio Opv (Generic) 01/13/1999 Small Pox 02/02/2004 Td (TDVAX) 01/09/1999 Tdap (Boostrix) 01/06/2024 Tdap (Generic) 01/18/2009 Typhoid (Typhim ) 02/02/2004,04/09/2002 Typhoid Vi Polysaccharide Va cc 25 Mcg/0.5Ml Im Soln 01/09/1999 Varicella (Varivax) 12/18/2013 Yellow Fever (YF- Vax) 01/13/1999 Family History Medical History Relation Comments Hypertension Brother No Known Problems Child 1 No Known Problems Child 2 No Known Problems Child 3 Arthritis Father Hypertension Father Diabetes Maternal Grandmother Arthritis Mother No Known Problems Sister Relation Status Comments Brother Child 1 Alive Child 2 Alive Child 3 Alive Father Alive Maternal Grandmother Mother Alive Sister Alive Social History Tobacco Use Types Packs/Day Years Used Date Smoking Tobacco: Never Cigars Passive Smoke Exposure: Yes Smokeless Tobacco: Never Tobacco Cessation:Counseling Given: No Comments:Occasional Cigar Alcohol Use Standard Drinks/Week Comments Yes 2 (1 standard drink = 0.6 oz pur e alcohol) social PHQ-2 Answer Date Recorded Patient Health Questionnaire-2 Score 1 01/06/2024 Sex and Gender Information Value Date Recorded Sex Assigned at Not on file Legal Sex Male 7:15 PM CDT Gender Identity Not on file Sexual Orientation Not on file Last Filed Vital Signs Vital Sign Reading Time Taken Comments Blood Pressure 132/77 05/11/2024 2:30 PM BLEACH BOILER PULLER Pulse 58 05/11/2024 2:30 PM BLEACH BOILER PULLER Temperature 36.1 C (97 F) 05/11/2024 2:30 PM BLEACH BOILER PULLER Respiratory Rate 16 05/11/2024 2:30 PM BLEACH BOILER PULLER Oxygen Saturation 98% 05/11/2024 2:30 PM BLEACH BOILER PULLER Inhaled Oxygen Concentration - - Weight 119 kg (262 lb 5.6 oz) 05/11/2024 8:00 AM BLEACH BOILER PULLER Height 195.6 cm (6' 5) 05/11/2024 8:00 AM BLEACH BOILER PULLER Body Mass Index 31.11 05/11/2024 8:00 AM BLEACH BOILER PULLER Plan of Treatment Upcoming Encounters Date Type Department Care Team (Late st Contact Info) Description 05/07/2025 8:30 AM BLEACH BOILER PULLER Office Visit [facility] Family Medicine - [place] [address] [facility] [address] [place] [address] Cassi Jennings MD [address] [place] [address] Health Maintenance Due Date Last Done Comments Hepatitis C 1993 Pneumococcal Vaccine: Pediatrics (0 to 5 Years) and At-Risk Patients (6 to 49 Years) (1 of 2 - PCV) 1994 PHQ-2 (Physician Venetie Ira) 07/01/2024 01/06/2024 Annual Physical 01/05/2025 01/06/2024 COVID-19 Vaccine (2 - season) 2025 03/27/2021 Influenza Adult (#1) 2025 06/11/2017, 03/21/2016, 07/21/2015, Additional history exists Colorectal Cancer Screening FIT-DNA (3 Years) 02/03/2027 02/04/2024, 02/04/2024 DTaP, Tdap and Td Vaccines (3 - Td or Tdap) 01/05/2034 01/06/2024, 01/18/2009, 01/09/1999 Hepatitis A Vaccines Aged Out 08/09/1999, 01/09/19 99 No longer eligible based on patient's age to complete this topic Meningococcal Vaccine Aged Out 08/09/1999 No eleanor maria t eligible based on patient's age to complete this topic Hepatitis B Vaccines Completed 09/20/2014, 12/18/2013, 11/10/2013 Meningococcal B Vaccine Aged Out No l onger eligible based on patient's age to complete this topic RSV Immunizations Under 20 Months Aged Out No longer eligible based on patient's age to complete this topic Medical Devices Implanted Type Area Laborer Aquatic Life Device Identifier Shelf Expiration Date Model / Serial / Lot Mesh 3dmax Right Mid Xl [id number] Inguinal - [id number] Implanted:Qty : 1 on 05/11/2024 by Emery Bond IV, MD at [facility] Mesh Right: Inguinal [employer] - [employer] [id number] 10/26/2028 [id number] / / [id number] Procedures Procedure Name Priority Date/Time Associated Diagnosis Comments COLOGUARD (EXACT SCIENCE) Routine 02/04/2024 6:30 PM CDT Colon cancer screening from Last 3 Months or Most Recently Relevant to Health Maintenance Results * COLOGUARD (EXACT SCIENCE) (02/04/2024 6:30 PM CDT) COLOGUARD RESULT Negative Negative [employer] (IA #:[id number]) Comment: NEGATIVE TEST RESULT. A negative Cologuard result indicates a low likelihood that a colorectal cancer (CRC) or advanced adenoma (adenomatous polyps with more advanced pre-malignant features) is present. The chance that a person with a negative Cologuard test has a colorectal cancer is less than 1 in 1500 (negative predictive value >99.9%) or has an advanced adenoma is less than 5.3% (negative predictive value 94.7%). These data are based on a prospective cross-sectional study of 10,000 individuals at average risk for colorectal cancer who were screened with both Cologuard and colonoscopy. (Daniela Hardin al, N Engl J Med 2014;370(14):1879-1978) The normal value (reference range) for this assay is negative. COLOGUARD RE-SCREENING RECOMMENDATION: Periodic colorectal cancer screening is an important part of preventive healthcare for asymptomatic individuals at average risk for colorectal cancer. Following a negative Cologuard result, the [employer] Cancer Society and U.S. Multi-Society Task Force screening guidelines recommend a Cologuard re-screening interval of 3 years. References: [employer] Society Guideline for Colorectal Cancer Screening: https://www.cancer.org/cancer/zynes-hkvema-zvxsmm/srpximxns-cycjanwgt-clwjnma/ac s-rec ommendations.html.; Prasanna DK, Danny CR, Pili ReynoldsK, Colorectal Cancer Screening: Recommendations for Physicians and Patients from the U.S. Multi-Society Task Force on Colorectal Cancer Screening , Am J Gastroenterology 2017; 112:1259-7574. TEST DESCRIPTION: Composite algorithmic analysis of stool DNA-biomarkers with hemoglobin immunoassay. Quantitative values of individual biomarkers are not reportable and are not associated with individual biomarker result reference ranges. Cologuard is intended for colorectal cancer screening of adults of either sex, 45 years or older, who are at average-risk for colorectal cancer (CRC). Cologuard has been approved for use by the U.S. FDA. The performance of Cologuard was established in a cross sectional study of average-risk adults aged 50-84. Cologuard performance in patients ages 45 to 49 years was estimated by sub-group analysis of near-age groups. Colonoscopies performed for a positive result may find as the most clinically significant lesion: colorectal cancer [4.0%], advanced adenoma (including sessile serrated polyps greater than or equal to 1cm diameter) [20%] or non- advanced adenoma [31%]; or no colorectal neoplasia [45%]. These estimates are derived from a prospective cross-sectional screening study of 10,000 individuals at average risk for colorectal cancer who were screened with both Cologuard and colonoscopy. (Daniela Hardin al, N Engl J Med 2014;370(14):5371-4511.) Cologuard may produce a false negative or false positive result (no colorectal cancer or precancerous polyp present at colonoscopy follow up). A negative Cologuard test result does not guarantee the absence of CRC or advanced adenoma (pre-cancer). The current Cologuard screening interval is every 3 years. ([employer] Cancer Society and U.S. Multi-Society Task Force). Cologuard performance data in a 10,000 patient pivotal study using colonoscopy as the reference method can be accessed at the following location: www.[employer].Musicane/results. Additional description of the Cologuard test process, warnings and precautions can be found at www.Link Medicineoguard.com. STOOL STOOL SPECIMEN / Unknown 02/04/2024 6:30 PM CDT 02/06/2024 1:41 PM CDT us Cassi Jennings MD BODY FLUIDS AND STOOLS O RDERABLES Final Result [facility] ([facility]) [address] [place] [place] [address], [employer] (CLIA #:[id number]) [address] [place] [address] from Last 3 Months or Most Recently Relevant to Health Maintenance Insurance [facility] Care Teams Truck Sales Representative Relationship Specialty Start Date End Date Cassi Jennings MD [address] [place] [address] PCP - General FAMILY PRACTICE 01/06/24 Carlos De La Fuente MD [address] [place] [address] CARDIOVASCULAR DISEASE 05/01/24 Oh Art MD [address] [facility] [address], [place] [address] CARDIAC ELECTROPHYSIOLOGY 05/04/24
--- NOTE | 2025-04-27 18:15 | ECG_ITS ---
Test Date: 2025-04-27 18:29:02 Measurements Intervals [place] Rate: 93 P: 55 [place]: 185 QRS: 44 QRSD: 97 T: 58 QT: 323 QTc: 404 Interpretive Statements SINUS RHYTHM INCOMPLETE RIGHT BUNDLE BRANCH BLOCK BORDERLINE ECG No previous ECG available for comparison Electronically Signed On 04-27-2025 18:35:37 CDT by Haseeb Dennis D.O.
--- NOTE | 2025-04-27 18:16 | ED.ABDPAIN ---
HPI - Abdominal Pain General Chief Complaint: Abdominal Pain Stated Complaint: severe lower abdominal pain constant since 0700 Time Seen by Provider: 04/27/25 17:55 History of Present Illness HPI narrative: 49-year-old male with history of cardiac arrest, infrarenal AAA being surveilled by vascular surgeon Dr. Hawthorne at [facility], AICD placement, gastritis and GERD. Patient presents to the emergency department with sudden-onset lower abdominal pain. Patient describes as a cramping sensation in the center of his pelvis somewhat radiating into his groin bilaterally. No testicular pain or swelling. No back pain or chest pain. No nausea or vomiting. Onset at approximately 7:00 a.m. after he woke up. No urinary issues or defecation issues. No recent fever chills. No traumatic injuries. Recently had a surveillance scan of his AAA in January of this year without any acute concerns. No surgical procedures or repairs prior. Related Data Allergies Allergy/AdvReac Type Severity Reaction Status Date / Time No Known Allergies Allergy Verified 04/27/25 17:40 Review of Systems Review of Systems: As reviewed above in HPI Exam Narrative: GENERAL: [Well-appearing, well-nourished, and in no acute distress.] HEAD: [Normocephalic, atraumatic.] EYES: [PERRLA and EOMI.] ENT: Nares clear, no rhinorrhea or epistaxis. Mucous membranes moist. NECK: Supple. CHEST: [Clear to auscultation. No respiratory distress.] HEART: [Regular rate and rhythm]. No murmur heard. [Normal peripheral pulses.] ABDOMEN: Soft and nondistended, reproducible tenderness in the suprapubic region but no palpable masses or skin changes. No hernias in the inguinal region., no rigidity or guarding EXTREMITIES: Normal range of motion. [No edema.] SKIN: Warm, dry, no rash. NEURO: [No focal deficits]. Alert and oriented [x3.] PSYCH: [Normal mood and affect.] Course Vital Signs Vital signs: Vital Signs Temperature 36.8 C 04/27/25 17:37 Pulse Rate 98 04/27/25 17:37 Respiratory Rate 16 04/27/25 17:37 Blood Pressure 124/73 04/27/25 17:37 Pulse Oximetry 97 04/27/25 17:37 Oxygen Delivery Room Air 04/27/25 17:37 Temperature 36.8 C 04/27/25 17:37 Pulse Rate 99 04/27/25 18:31 Respiratory Rate 14 04/27/25 18:31 Blood Pressure 111/82 04/27/25 18:31 Pulse Oximetry 95 04/27/25 18:31 Oxygen Delivery Room Air 04/27/25 18:14 MDM - Abdominal Pain MDM Narrative Medical decision making narrative: 49-year-old male with history of cardiac arrest, infrarenal AAA being surveilled by vascular surgeon Dr. Hawthorne at [facility], AICD placement, gastritis and GERD. Patient presents to the emergency department with sudden-onset lower abdominal pain. Patient describes as a cramping sensation in the center of his pelvis somewhat radiating into his groin bilaterally. No testicular pain or swelling. No back pain or chest pain. No nausea or vomiting. Onset at approximately 7:00 a.m. after he woke up. No urinary issues or defecation issues. No recent fever chills. No traumatic injuries. Recently had a surveillance scan of his AAA in January of this year without any acute concerns. No surgical procedures or repairs prior. Patient is hemodynamically stable normal vital signs here. He has suprapubic tenderness without any palpable masses but he does have concerning abdominal history with an infrarenal abdominal aortic aneurysm and history of cardiac arrest. Broad workup underway at this time. Suspect GI origin to symptomatology but will rule out vascular anomalies with lactic acid and CT angiography. Basic laboratory studies ordered. Patient offered pain medications but politely declined at this juncture. Patient did require some pain medicine after several re-evaluations. Given 50 mcg of fentanyl with improvement. Has a leukocytosis of 12.3. No anemia. Normal platelet count. CT angiography shows stable aneurysm but a perforated diverticulitis without abscess. Spoke to Dr. Morales from General surgery who recommended Zosyn. Patient given fluids pain medicines and Zosyn and will be admitted to the hospitalist service. Spoke to Dr. Cummins who accepted the patient to a [facility] surge floor at this time. Patient updated on the plan and comfortable with admission plan. Medical Records Attestation: I reviewed the patient's medical records. Lab Data Attestation: I reviewed the patient's lab results. 04/27/25 18:30 04/27/25 18:30 Labs: Lab Results 04/27/25 Range/Units 18:30 WBC 12.3 H (4.5-10.0) K/mm3 RBC 5.47 (4.6-6.20) M/mm3 Hgb 14.7 (14.0-18.0) g/dL Hct 44.7 (42.0-52.0) % MCV 81.7 (80-100) fl MCH 26.9 (26-34) pg MCHC 32.9 (32-36) g/dl RDW 14.2 (11.5-14.5) % Plt Count 239 (150-375) k/mm3 MPV 9.5 (7.4-10.4) fl Immature Gran % (Auto) 0.2 (0-0.5) % Neut % (Auto) 81.2 H (45.5-73.1) % Lymph % (Auto) 7.7 L (18.3-44.2) % [place] % (Auto) 10.5 H (2.6-8.5) % Eos % (Auto) 0.2 (0-4.4) % Baso % (Auto) 0.2 (0.2-1.2) % Lymph # (Auto) 0.95 (0.9-3.2) K/mm3 [place] # (Auto) 1.3 H (0.1-0.6) K/mm3 Eos # (Auto) 0.0 (0-0.3) K/mm3 Baso # (Auto) 0.0 (0.0-0.1) K/mm3 Abs Immat Gran (auto) 0.03 (0.00-0.031) K/mm3 Absolute Neuts (auto) 10.0 H (1.3-6.7) K/mm3 Absolute Nucleated RBC 0.000 (0.0-0.012) K/mm3 Nucleated RBC % 0.0 (0.0-0.2) % PT 14.0 (11.1-14.7) Seconds INR 1.1 APTT 29.0 (22.3-36.8) Seconds Sodium 132 L (137-145) mmol/L Potassium 4.1 (3.4-5.0) mmol/L Chloride 100 (98-107) mmol/L Carbon Dioxide 26 (22-30) mmol/L Anion Gap 6 (4-12) mmol/L BUN 18 (9-20) mg/dL Creatinine 1.04 (0.7-1.3) mg/dL Estim Creat Clear Calc 96 ml/min Estimated GFR > 60 (59 - ) Glucose 111 H (65-110) mg/dL Lactic Acid 1.6 (0.7-2.0) mmol/L Calcium 9.0 (8.4-10.2) mg/dL Total Bilirubin 1.3 (0.2-1.3) mg/dL AST 26 (17-59) U/L ALT 27 (6-50) U/L Alkaline Phosphatase 62 (38-126) U/L Total Protein 7.4 (6.3-8.2) g/dL Albumin 4.1 (3.5-5.1) g/dL Lipase 28 (23-300) U/L Imaging Data Attestation: I personally reviewed and interpreted this imaging study as follows: My impression: Impressions Chest/Abdomen/Pelvis CTA 04/27/25 19:26 IMPRESSION: CHEST- 1. No acute cardiopulmonary findings. 2. 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 (Previous reported measurement of 4.8 cm inaccurate) ABDOMEN/PELVIS- 1. Sigmoid diverticulitis, complicated by perforation. No abscess. 2. No other acute abnormality. Radiologist's impression: ITS Impressions Chest/Abdomen/Pelvis CTA 04/27/25 19:26 IMPRESSION: CHEST- 1. No acute cardiopulmonary findings. 2. 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 (Previous reported measurement of 4.8 cm inaccurate) ABDOMEN/PELVIS- 1. Sigmoid diverticulitis, complicated by perforation. No abscess. 2. No other acute abnormality. Discharge Plan Discharge Clinical Impression: Acute diverticulitis, Perforation of sigmoid colon due to diverticulitis, Abdominal pain Patient Disposition: Still a Patient Condition: Stable Time of Disposition: 21:23
[2025-04-27 18:45] LABS: Hematocrit 44.7 % (42.0-52.0); Hemoglobin 14.7 g/dL (14.0-18.0); Immature Granulocyte Percent A 0.2 % (0-0.5); Lymphocytes Absolute Auto 0.95 K/mm3 (0.9-3.2); Mean Corpuscular HGB Conc 32.9 g/dl (32-36); Mean Corpuscular Hemoglobin 26.9 pg (26-34); Mean Corpuscular Volume 81.7 fl (80-100); Nucleated Red Blood Cells Absolute Auto 0.000 K/mm3 (0.0-0.012); Nucleated Red Blood Cells Perc 0.0 % (0.0-0.2); Platelet Count Result 239 k/mm3 (150-375); Red Blood Count 5.47 M/mm3 (4.6-6.20); White Blood Count 12.3 K/mm3 (4.5-10.0)
[2025-04-27 18:57] LABS: Alanine Aminotransferase 27 U/L (6-50); Albumin Level 4.1 g/dL (3.5-5.1); Alkaline Phosphatase 62 U/L (38-126); Anion Gap 6 mmol/L (4-12); Aspartate Amino Transferase 26 U/L (17-59); Bilirubin,Total 1.3 mg/dL (0.2-1.3); Blood Urea Nitrogen 18 mg/dL (9-20); Calcium 9.0 mg/dL (8.4-10.2); Carbon Dioxide 26 mmol/L (22-30); Chloride 100 mmol/L (98-107); Estimated CRCL calculation 96 ml/min; Estimated Glomerular Filt Rate > 60; Glucose 111 mg/dL (65-110); Lipase 28 U/L (23-300); Potassium 4.1 mmol/L (3.4-5.0); Sodium 132 mmol/L (137-145); Total Protein 7.4 g/dL (6.3-8.2)
[2025-04-27 18:59] LABS: INR 1.1; Partial Thromboplastin Time 29.0 Seconds (22.3-36.8); Prothrombin Time 14.0 Seconds (11.1-14.7)
[2025-04-27] MEDS: metroNIDAZOLE 500 MG/ISO 100ML 500 MG/100 ML BAG 100 MG IVPB (20:01)
[2025-04-27] MEDS: CIPROFLOXACIN 400 MG/D5W 200ML 200 ML 200 MG IVPB (20:01)
[2025-04-27] MEDS: fentaNYL CITRATE INJ (*CRX) 100 MCG/2 ML VIAL 50 MCG IV PUSH ×2 (20:18→21:41)
[2025-04-27] MEDS: PIPERACILLIN/TAZOBACTAM SOD 4.5 GM in SODIUM CHLORIDE 0.9% IV 100 ML 200 ML IVPB (20:18)
[2025-04-27] MEDS: LACTATED RINGERS 1,000 ML 999 ML IV CONT (20:18)
[2025-04-27] MEDS: LACTATED RINGERS 1,000 ML 125 ML IV CONT (21:22)
[2025-04-27] MEDS: ACETAMINOPHEN 325 MG TABLET 650 MG PO (21:41)
--- NOTE | 2025-04-27 22:00 | P.HP_ITS ---
H&P: HPI History of Present Illness Date/Time: 04/27/25 22:00 Chief Complaint: Abdominal Pain Narrative: 49 y/o M presents here cardiac arrest, infrarenal AAA being surveilled by vascular surgeon Dr. Hawthorne at [facility], AICD placement, gastritis and GERD presents here with abdominal pain. The patient presents here from home on 04/27 for further evaluation of abdominal pain. He reports onset of lower or/central abdominal pain that started last night, however acutely worsened around 7:00 a.m. this morning. He further describes the abdominal pain as a cramping sensation, mild radiation into his bi lateral groin, constant, and no modifying factors. No associated testicular pain or swelling. He denies associated chest pain, back pain, nausea, vomiting, fever, chills, urinary complaints, or changes in stool. He denies any previous history of diverticulitis. Has never underwent a colonoscopy previously, has had a negative Cologuard. Initial VS at presentation: 98.3? F, HR 90, R 16, 124/73, and 97% on RA. ED workup showed: WBC 12.3, no anemia, normal coags, sodium 132, creatinine 1.04 and GFR >60 on, glucose 111, lactic 1.6. CTA chest/abdomen/pelvis showed no acute cardiopulmonary findings, his farm ectasia of ascending thoracic aorta of 4.5 cm not significantly changed, sigmoid diverticulitis complicated by perforation without abscess, no other acute abnormality of the abdomen/pelvis. EKG showed sinus rhythm, incomplete right bundle branch block, rate 93. Review of Systems Review of Systems: All systems reviewed & are unremarkable except as noted in HPI and below [facility] Past Medical History Medical History (Updated 04/27/25 @ 22:27 by Leonie Quinteros APRN) GERD (gastroesophageal reflux disease) Gastritis Infrarenal abdominal aortic aneurysm (AAA) without rupture History of cardiac arrest Surgical History Surgical History (Updated 04/27/25 @ 22:31 by Leonie Quinteros APRN) History of inguinal hernia repair History of automatic internal cardiac defibrillator (AICD) Social History Social History Alcohol intake: current Drinks per week: 1 Substance use: never Lack of Transportation: No Lack of Food: Never True Current Housing: I Have Housing Concerned About Future Housing: No Difficulty Paying Gas/Electric Bills: No Difficulty Paying for Meds: No Currently Unemployed: No Education: Master's Degree or Higher Difficulty w/ Childcare or Family Care: No Spiritual care concerns: Yes Meds Home Medications and Allergies Home Medications ?Medication ?Instructions ?Recorded ?Confirmed ?Type carvedilol 25 mg tablet 25 mg PO BID 04/27/25 History esomeprazole magnesium 20 mg 20 mg PO DAILY@0630 04/2704/27/25 History capsule,delayed release (Acid Associate Material Handler (esomeprazole)) Allergies Allergy/AdvReac Type Severity Reaction Status Date / Time mushroom Allergy Intermediate Diarrhea Verified 04/27/25 22:10 Vital Signs Vital Signs - 24 hr 04/27/25 17:37 04/27/25 17:59 04/27/25 18:01 Temperature 98.3 F Pulse Rate 98 95 96 Respiratory Rate 16 18 21 H Blood Pressure 124/73 116/77 114/78 Pulse Oximetry 97 93 92 Oxygen Delivery Room Air 04/27/25 18:14 04/27/25 18:16 04/27/25 18:31 Temperature Pulse Rate 100 98 99 Respiratory Rate 14 15 14 Blood Pressure 116/79 116/79 111/82 Pulse Oximetry 95 94 95 Oxygen Delivery Room Air 04/27/25 19:00 04/27/25 19:18 04/27/25 19:19 Temperature Pulse Rate 97 95 95 Respiratory Rate 12 22 H 22 H Blood Pressure 138/78 Pulse Oximetry 94 97 96 Oxygen Delivery 04/27/25 19:30 04/27/25 19:31 04/27/25 19:45 Temperature Pulse Rate 95 95 95 Respiratory Rate 21 H 22 H 21 H Blood Pressure 133/77 Pulse Oximetry 95 95 94 Oxygen Delivery 04/27/25 19:46 04/27/25 20:01 04/27/25 20:02 Temperature Pulse Rate 95 98 97 Respiratory Rate 23 H 18 14 Blood Pressure 135/80 121/79 Pulse Oximetry 95 96 96 Oxygen Delivery 04/27/25 20:18 04/27/25 20:30 04/27/25 21:00 Temperature Pulse Rate 94 94 97 Respiratory Rate 14 19 19 Blood Pressure Pulse Oximetry 94 94 95 Oxygen Delivery 04/27/25 21:01 04/27/25 21:15 04/27/25 21:30 Temperature Pulse Rate 94 94 93 Respiratory Rate 15 20 19 Blood Pressure 121/78 Pulse Oximetry 97 95 95 Oxygen Delivery Exam Const: General: comfortable and no acute distress Other: , male, nontoxic appearance HENMT: Face/Nose/Sinus: Normal nares present Mouth: Yes moist mucous membranes Eyes: General: appearance normal, both eyes and all related structures Sclera: sclerae normal Pupils: Equal, round and reactive pupils present EOM: EOMs intact bilaterally Resp: Effort & Inspection: normal respiratory effort Auscultation: clear to auscultation bilaterally Cardio: Rate: regular rate Rhythm: regular rhythm Other: S1-S2 present without murmur, rub, ectopy GI: Other: Abdomen soft, nondistended. Tenderness in the central lower quadrant. Normoactive bowel sounds in the upper quadrants, normoactive to hypoactive bowel sounds in the lower quadrants. Skin: General skin exam: normal color and no rashes or lesions noted Wounds: no wounds Neuro: Speech: normal speech Motor exam (neuro): 5/5 motor strength present throughout Sensory Exam: normal sensation Other: A&O x4 Extrem: General: normal to inspection Psych: Mental Status: mental status grossly normal Affect: normal affect Other: Good insight and judgment, pleasant H&P: Results Labs Labs: Short CBC 04/27/25 Range/Units 18:30 WBC 12.3 H (4.5-10.0) K/mm3 Hgb 14.7 (14.0-18.0) g/dL Hct 44.7 (42.0-52.0) % Plt Count 239 (150-375) k/mm3 BMP 04/27/25 18:30 Sodium 132 L Potassium 4.1 Chloride 100 Carbon Dioxide 26 BUN 18 Creatinine 1.04 Glucose 111 H Calcium 9.0 Liver Function 04/27/25 Range/Units 18:30 Total Bilirubin 1.3 (0.2-1.3) mg/dL AST 26 (17-59) U/L ALT 27 (6-50) U/L Alkaline Phosphatase 62 (38-126) U/L Albumin 4.1 (3.5-5.1) g/dL Assessment and Plan Assessment and plan (1) SIRS (systemic inflammatory response syndrome): Code(s): R65.10 - Systemic inflammatory response syndrome (SIRS) of non-infectious origin without acute organ dysfunction Status: Acute Assessment and Plan: Patient met SIRS criteria at due to a heart rate greater than 90 and a WBC greater than 12. However lactic 1.6. Blood cultures obtained on 04/27, follow. No hemodynamic instability observed. Extremities warm and dry with adequate perfusion. Infectious source: Diverticulitis with complication, see below. - trend WBC - monitor hemodynamic stability - IV fluids: 1L bolus -> 125 mL/hr (2) Perforation of sigmoid colon due to diverticulitis: Code(s): K57.20 - Diverticulitis of large intestine with perforation and abscess without bleeding Status: Acute Assessment and Plan: Presented to [facility] on 04/27 with central/lower abdominal pain with some radiation into his bilateral groin without associated swelling or pain in his testicles. CT abd/pelvis (04/27) showed a fusiform ectasia of the ascending thoracic aorta, 4.5 cm not significantly changed and sigmoid diverticulitis complicated by perforation without abscess. - started on Cipro and Flagyl in the emergency department, transition to Zosyn per general surgery recommendations - general surgery consulted, awaiting formal recs - IV fluids: 1L bolus, now on 125 mL/hr - clear liquid diet - pain medication p.r.n. and antiemetic p.r.n. - daily clinical reassessment for improvement - trend white count, electrolytes, and magnesium (3) Infrarenal abdominal aortic aneurysm (AAA) without rupture: Code(s): I71.43 - Infrarenal abdominal aortic aneurysm, without rupture Status: Acute Assessment and Plan: Patient has history of infrarenal AAA. Currently follows with vascular surgeon at [facility], Dr. Hawthorne. CT of the abdomen/pelvis showed a fusiform ectasia of ascending thoracic aorta 4.5 cm not significantly changed (previously reported measurement of 4.8 cm, inaccurate). - continue Coreg Plan Diet: Clear liquid GI Prophylaxis: Omeprazole p.o. DVT Prophylaxis: SCDs IV fluids: 1L bolus -> 125 mL/hr Lines/Tubes: Peripheral IV Code Status: Full code Quality VTE Prophylaxis VTE prophylaxis: mechanical ordered Hospitalist [facility] Advance Care Plan I have confirmed that the patient's Advanced Care Plan is present, code status is documented, or surrogate decision maker is listed in patient medical record.: Yes Medication Reconciliation I have utilized all available resources to obtain, update and review the patients current medications (includes all prescriptions, OTC, herbals, cannabis, and nutritional supplements).: Yes
[2025-04-28] MEDS: fentaNYL CITRATE INJ (*CRX) 100 MCG/2 ML VIAL 50 MCG IV PUSH (01:27)
[2025-04-28 04:30] VITALS: BP 111/63; PULSE 99; RESP 18; TEMP 36.6; O2SAT 93
[2025-04-28] MEDS: PANTOPRAZOLE 40 MG TABLET PO (05:26)
[2025-04-28] MEDS: PIPERACILLIN/TAZOBACTAM SOD 4.5 GM in SODIUM CHLORIDE 0.9% IV 100 ML 200 ML IVPB ×3 (05:27→23:20)
[2025-04-28 05:58] LABS: Hematocrit 41.8 % (42.0-52.0); Hemoglobin 13.4 g/dL (14.0-18.0); Immature Granulocyte Percent A 0.4 % (0-0.5); Lymphocytes Absolute Auto 0.96 K/mm3 (0.9-3.2); Mean Corpuscular HGB Conc 32.1 g/dl (32-36); Mean Corpuscular Hemoglobin 26.6 pg (26-34); Mean Corpuscular Volume 83.1 fl (80-100); Nucleated Red Blood Cells Absolute Auto 0.000 K/mm3 (0.0-0.012); Nucleated Red Blood Cells Perc 0.0 % (0.0-0.2); Platelet Count Result 233 k/mm3 (150-375); Red Blood Count 5.03 M/mm3 (4.6-6.20); White Blood Count 14.6 K/mm3 (4.5-10.0)
[2025-04-28 06:27] LABS: Alanine Aminotransferase 25 U/L (6-50); Albumin Level 3.6 g/dL (3.5-5.1); Alkaline Phosphatase 61 U/L (38-126); Anion Gap 8 mmol/L (4-12); Aspartate Amino Transferase 48 U/L (17-59); Bilirubin,Total 1.6 mg/dL (0.2-1.3); Blood Urea Nitrogen 16 mg/dL (9-20); Calcium 8.8 mg/dL (8.4-10.2); Carbon Dioxide 24 mmol/L (22-30); Chloride 100 mmol/L (98-107); Estimated CRCL calculation 94 ml/min; Estimated Glomerular Filt Rate > 60; Glucose 138 mg/dL (65-110); Magnesium 1.9 mg/dL (1.6-2.3); Sodium 132 mmol/L (137-145); Total Protein 6.6 g/dL (6.3-8.2)
[2025-04-28 06:32] LABS: Potassium 3.9 mmol/L (3.4-5.0)
--- NOTE | 2025-04-28 07:30 | P.CONGS_ITS ---
Assessment and Plan Assessment and plan (1) Perforation of sigmoid colon due to diverticulitis: Code(s): K57.20 - Diverticulitis of large intestine with perforation and abscess without bleeding <Bayron Sheridan, DO - Last Filed: 04/28/25 07:39> Status: Acute <Bayron Sheridan, DO - Last Filed: 04/28/25 07:39> Assessment and Plan: -I personally reviewed the CT abdomen and pelvis, there does appear to be a small amount of free intraperitoneal air, this appears to be contained within the mesentery. There was no evidence of abscess or free fluid collection within the abdomen. The patient's abdomen is soft and minimally tender. He does not exhibit any peritoneal signs. His vital signs are stable. He has tolerated liquids, he reports a small amount of pain with bladder distention, but does not report increased pain with intake of liquids. Given the findings on the exam, and CT scan it is reasonable to treat medically with bowel rest, advancing diet as tolerated, maintaining a low-fiber diet during acute flare, high-fiber diet after acute flare, as well as antibiotics. -hospitalist admission -CLD, ADAT to low residue diet -IV ABX -no acute surgical intervention -thank you for the consult, surgery will follow A&P discussed with Dr. Morales <Bayron Sheridan, DO - Last Filed: 04/28/25 07:39> Assessment and Plan: Patient has been admitted for diverticulitis with micro perforation. He is remaining hemodynamically stable and pain is almost completely resolved already this morning. He is on a clear liquid diet and IV antibiotics. Can progressively advance diet to a low-fiber diet as tolerated. No surgical indications at this time but will follow patient for any changes. <Mik Morales, DO - Last Filed: 04/28/25 12:54> History of Present Illness Consult details Consult date: 04/28/25 <Bayron Sheridan DO - Last Filed: 04/28/25 07:39> 04/28/25 <Mik Morales, DO - Last Filed: 04/28/25 12:54> Reason for consult: other (Diverticulitis) <Mik Morales DO - Last Filed: 04/28/25 12:54> Requesting physician: Demetrio Garcia MD <Mik Morales, DO - Last Filed: 04/28/25 12:54> Narrative: Patient is a 49-year-old male with a past medical history of GERD, AAA followed by KRISTYN Lara placement s/p cardiac arrest of unknown cause, and bicuspid aortic valve who presented to the hospital complaining left lower quadrant abdominal pain started yesterday. The patient reports that the night before he had a little bit of pain, however after his shower in the morning the pain went away. He does state that it returned and got worse throughout the day. He has never had this before. He denies hematochezia, melena, or changes in bowel habits. He has never had a colonoscopy. He did have Cologuard last year. He denies abnormal weight loss. Denies fevers, chills, chest pain, shortness of breath, nausea, vomiting. The patient had a CT abdomen and pelvis which showed a diverticulitis with a microperforation without abscess development. His WBC in the ED was 12.3, 14.6 this morning. T bili 1.6. Remainder of his labs were grossly WNL. VSS. Afebrile. He reports his only intra-abdominal surgical history is a robotic assisted laparoscopic inguinal hernia repair. On exam, his abdomen is soft, minimally tender to palpation in the left lower quadrant, nondistended, non peritoneal. <Bayron Sheridan, DO - Last Filed: 04/28/25 07:39> Review of Systems 2 Review of Systems: All systems reviewed & are unremarkable except as noted in HPI and below <Bayron Sheridan DO - Last Filed: 04/28/25 07:39> Eyes: Eyes: Denies change in vision <Mik Morales DO - Last Filed: 04/28/25 12:54> ENT: Denies hearing loss, Denies neck pain and Denies sore throat <Mik Morales DO - Last Filed: 04/28/25 12:54> Cardiovascular: Cardiovascular: Denies chest pain and Denies dyspnea < Mik Morales DO - Last Filed: 04/28/25 12:54> Respiratory: Respiratory: Denies cough, Denies dyspnea and Denies wheezing <Mik Morales DO - Last Filed: 04/28/25 12:54> Gastrointestinal: Gastrointestinal: Reports as per HPI <Mik Morales, DO - Last Filed: 04/28/25 12:54> Genitourinary: Genitourinary: Denies hematuria and Denies dysuria <Mik Morales DO - Last Filed: 04/28/25 12:54> Musculoskeletal: Musculoskeletal: Denies arthralgias, Denies joint swelling and Denies neck pain <Mik Morales, DO - Last Filed: 04/28/25 12:54> Allergic/Immunologic: Allergic/Immunologic: Denies wheezing <Mik Morales, DO - Last Filed: 04/28/25 12:54> [facility] Past Medical History Medical History: Medical History (Updated 04/27/25 @ 22:27 by Leonie Quinteros APRN) GERD (gastroesophageal reflux disease) Gastritis Infrarenal abdominal aortic aneurysm (AAA) without rupture History of cardiac arrest <Bayron Sheridan, DO - Last Filed: 04/28/25 07:39> Surgical History Surgical History: Surgical History (Updated 04/27/25 @ 22:31 by Leonie Quinteros APRN) History of inguinal hernia repair History of automatic internal cardiac defibrillator (AICD) <Bayron Sheridan, DO - Last Filed: 04/28/25 07:39> Family History Family History: Family History (Updated 04/27/25 @ 22:33 by Colin Griffin RN) Grandparent Diabetes mellitus Father Hypertension Mother Hypertension Sibling Hypertension <Bayron Sheridan, DO - Last Filed: 04/28/25 07:39> Social History Social History: Social History Smoking status: Never smoker Alcohol intake: current Drinks per week: 1 Substance use: never Lack of Transportation: No Lack of Food: Never True Current Housing: I Have Housing Concerned About Future Housing: No Difficulty Paying Gas/Electric Bills: No Difficulty Paying for Meds: No Currently Unemployed: No Education: Master's Degree or Higher Difficulty w/ Childcare or Family Care: No Spiritual care concerns: Yes <Bayron Sheridan DO - Last Filed: 04/28/25 07:39> Meds Home Medications and Allergies Home medications: Home Medications ?Medication ?Instructions ?Recorded ?Confirmed ?Type carvedilol 25 mg tablet 25 mg PO BID 04/27/25 History esomeprazole magnesium 20 mg 20 mg PO DAILY@0630 04/2704/27/25 History capsule,delayed release (Acid Field Identification Specialist (esomeprazole)) <Bayron Sheridan, DO - Last Filed: 04/28/25 07:39> Allergies/Adverse reactions: Allergies Allergy/AdvReac Type Severity Reaction Status Date / Time mushroom Allergy Intermediate Diarrhea Verified 04/27/25 22:10 <Bayron Sheridan, DO - Last Filed: 04/28/25 07:39> Vital Signs Vital Signs - 24 hr 04/27/25 17:37 04/27/25 17:59 04/27/25 18:01 Temperature 98.3 F Pulse Rate 98 95 96 Respiratory Rate 16 18 21 H Blood Pressure 124/73 116/77 114/78 Pulse Oximetry 97 93 92 Oxygen Delivery Room Air 04/27/25 18:14 04/27/25 18:16 04/27/25 18:31 Temperature Pulse Rate 100 98 99 Respiratory Rate 14 15 14 Blood Pressure 116/79 116/79 111/82 Pulse Oximetry 95 94 95 Oxygen Delivery Room Air 04/27/25 19:00 04/27/25 19:18 04/27/25 19:19 Temperature Pulse Rate 97 95 95 Respiratory Rate 12 22 H 22 H Blood Pressure 138/78 Pulse Oximetry 94 97 96 Oxygen Delivery 04/27/25 19:30 04/27/25 19:31 04/27/25 19:45 Temperature Pulse Rate 95 95 95 Respiratory Rate 21 H 22 H 21 H Blood Pressure 133/77 Pulse Oximetry 95 95 94 Oxygen Delivery 04/27/25 19:46 04/27/25 20:01 04/27/25 20:02 Temperature Pulse Rate 95 98 97 Respiratory Rate 23 H 18 14 Blood Pressure 135/80 121/79 Pulse Oximetry 95 96 96 Oxygen Delivery 04/27/25 20:18 04/27/25 20:30 04/27/25 21:00 Temperature Pulse Rate 94 94 97 Respiratory Rate 14 19 19 Blood Pressure Pulse Oximetry 94 94 95 Oxygen Delivery 04/27/25 21:01 04/27/25 21:15 04/27/25 21:30 Temperature Pulse Rate 94 94 93 Respiratory Rate 15 20 19 Blood Pressure 121/78 Pulse Oximetry 97 95 95 Oxygen Delivery 04/27/25 22:00 04/27/25 23:00 04/28/25 04:30 Temperature 98.2 F 97.8 F Pulse Rate 95 95 99 Respiratory Rate 20 20 18 Blood Pressure 118/72 111/63 Pulse Oximetry 98 98 93 Oxygen Delivery Room Air <Bayron Sheridan, DO - Last Filed: 04/28/25 07:39> Exam 2 Narrative: General: Awake, alert, no acute distress HEENT: NC/AT, EOMI, mucous membranes moist and pink Neck: No masses or swelling, no JVD Heart: Regular rate, HDS Lungs: Symmetric expansion, no IWOB, on RA Abdomen: Soft, minimally TTP in LLQ, nondistended, non peritoneal Extremities: Moves all, normal inspection Psych: Normal affect, normal mood, normal judgment <Bayron Sheridan DO - Last Filed: 04/28/25 07:39> Const: General: alert; No acute distress <Mik Morales DO - Last Filed: 04/28/25 12:54> Orientation/consciousness: patient oriented x3 <Mik Morales DO - Last Filed: 04/28/25 12:54> Limitations: no limitations <Mik Morales DO - Last Filed: 04/28/25 12:54> HENMT: Head: normocephalic and atraumatic <Mik Morales DO - Last Filed: 04/28/25 12:54> Ears: hearing grossly normal bilaterally <Mik Morales DO - Last Filed: 04/28/25 12:54> Face/Nose/Sinus: Normal external nose present and Normal nares present < Mik Morales DO - Last Filed: 04/28/25 12:54> Mouth: Yes Normal oral and palatal mucosa present and Yes moist mucous membranes <Mik Morales DO - Last Filed: 04/28/25 12:54> Eyes: General: appearance normal, both eyes and all related structures < Mik Morales DO - Last Filed: 04/28/25 12:54> Conjunctivae: conjunctivae normal <Mik Mckayera, - Last Filed: 04/28/25 12:54> Sclera: sclerae normal <Mik Wilburnshawna - Last Filed: 04/28/25 12:54> Pupils: Equal, round and reactive pupils present <Mik Wilburnshawna DO - Last Filed: 04/28/25 12:54> EOM: EOMs intact bilaterally <Mik ConnerDemetrice Morales - Last Filed: 04/28/25 12:54> Neck: Neck: normal visual inspection, full ROM, no lymphadenopathy, supple and no JVD <Mik ConnerDemetrice Morales DO - Last Filed: 04/28/25 12:54> Lymphatic: no lymphadenopathy noted <Mik ConnerDemetrice Morales - Last Filed: 04/28/25 12:54> Chest: Chest palpation & inspection: normal inspection of the chest < Mik ConnerDemetrice Morales - Last Filed: 04/28/25 12:54> Resp: Effort & Inspection: normal respiratory effort and able to speak in complete sentences <Mik ConnerDemetrice Cosmoshawna - Last Filed: 04/28/25 12:54> Auscultation: clear to auscultation bilaterally <Mik ConnerDemetrice Morales - Last Filed: 04/28/25 12:54> Percussion: percussion normal <Mik Wilburnshawna - Last Filed: 04/28/25 12:54> Cardio: Jugular venous distension: no JVD <Mik ConnerDemetrice Morales - Last Filed: 04/28/25 12:54> Rate: regular rate <Mik ConnerDemetrice Morales - Last Filed: 04/28/25 12:54> Rhythm: regular rhythm <Mik ConnerDemetrice Morales - Last Filed: 04/28/25 12:54> Heart sounds: S1 normal heart sound present and S2 normal heart sound present <Mik ConnerDemetrice Morales - Last Filed: 04/28/25 12:54> Peripheral pulses: Peripheral pulses 2+ throughout <Mik ConnerDemetrice Morales - Last Filed: 04/28/25 12:54> GI: Inspection: normal to inspection <Mik UbaldoDemetrice Morales DO - Last Filed: 04/28/25 12:54> GI Palp: Yes Soft to palpation, Yes Tenderness to palpation present (GI) (minimal LLQ), No Guarding due to palpation present (GI) and No Rebound tenderness present <Mik Wilburnshawna DO - Last Filed: 04/28/25 12:54> Percussion: Yes normal to percussion <Mik Wilburnshawna DO - Last Filed: 04/28/25 12:54> Auscultation: normal bowel sounds <Mik Wilburnshawna DO - Last Filed: 04/28/25 12:54> : General: Yes no CVA tenderness <Mik Wilburnshawna DO - Last Filed: 04/28/25 12:54> Back/Spine/Pelvis: Back: no CVA tenderness <Mik Wilburnshawna DO - Last Filed: 04/28/25 12:54> Skin: General skin exam: normal color and dry skin <Mik Wilburnshawna DO - Last Filed: 04/28/25 12:54> Neuro: General: patient oriented x3, gait normal, moves all extremities, no focal motor deficits and CN's II-XI intact bilaterally <Mik Wilburnshawna DO - Last Filed: 04/28/25 12:54> Cranial nerves: Yes Equal, round and reactive pupils present <Mik Wilburnshawna DO - Last Filed: 04/28/25 12:54> Speech: normal speech <Mik Wilburnshawna DO - Last Filed: 04/28/25 12:54> Extrem: General: normal to inspection and capillary refill normal <Mik Wilburnshawna DO - Last Filed: 04/28/25 12:54> Results Labs Result diagrams: 04/28/25 05:20 04/28/25 05:20 <Bayron Sheridan, DO - Last Filed: 04/28/25 07:39> Labs: Abnormal lab results 04/27/25 04/28/25 Range/Units 18:30 05:20 WBC 12.3 H 14.6 H (4.5-10.0) K/mm3 Hgb 13.4 L (14.0-18.0) g/dL Hct 41.8 L (42.0-52.0) % Neut % (Auto) 81.2 H 83.2 H (45.5-73.1) % Lymph % (Auto) 7.7 L 6.6 L (18.3-44.2) % [place] % (Auto) 10.5 H 9.4 H (2.6-8.5) % [place] # (Auto) 1.3 H 1.4 H (0.1-0.6) K/mm3 Abs Immat Gran (auto) 0.06 H (0.00-0.031) K/mm3 Absolute Neuts (auto) 10.0 H 12.2 H (1.3-6.7) K/mm3 Sodium 132 L 132 L (137-145) mmol/L Glucose 111 H 138 H (65-110) mg/dL Total Bilirubin 1.6 H (0.2-1.3) mg/dL Diabetes panel 04/27/25 04/28/25 Range/Units 18:30 05:20 Sodium 132 L 132 L (137-145) mmol/L Potassium 4.1 3.9 (3.4-5.0) mmol/L Chloride 100 100 (98-107) mmol/L Carbon Dioxide 26 24 (22-30) mmol/L BUN 18 16 (9-20) mg/dL Creatinine 1.04 1.06 (0.7-1.3) mg/dL Glucose 111 H 138 H (65-110) mg/dL Calcium 9.0 8.8 (8.4-10.2) mg/dL AST 26 48 (17-59) U/L ALT 27 25 (6-50) U/L Alkaline Phosphatase 62 61 (38-126) U/L Total Protein 7.4 6.6 (6.3-8.2) g/dL Albumin 4.1 3.6 (3.5-5.1) g/dL Calcium panel 04/27/25 04/28/25 Range/Units 18:30 05:20 Calcium 9.0 8.8 (8.4-10.2) mg/dL Albumin 4.1 3.6 (3.5-5.1) g/dL Pituitary panel 04/27/25 04/28/25 Range/Units 18:30 05:20 Sodium 132 L 132 L (137-145) mmol/L Potassium 4.1 3.9 (3.4-5.0) mmol/L Chloride 100 100 (98-107) mmol/L Carbon Dioxide 26 24 (22-30) mmol/L BUN 18 16 (9-20) mg/dL Creatinine 1.04 1.06 (0.7-1.3) mg/dL Glucose 111 H 138 H (65-110) mg/dL Calcium 9.0 8.8 (8.4-10.2) mg/dL Adrenal panel 04/27/25 04/28/25 Range/Units 18:30 05:20 Sodium 132 L 132 L (137-145) mmol/L Potassium 4.1 3.9 (3.4-5.0) mmol/L Chloride 100 100 (98-107) mmol/L Carbon Dioxide 26 24 (22-30) mmol/L BUN 18 16 (9-20) mg/dL Creatinine 1.04 1.06 (0.7-1.3) mg/dL Glucose 111 H 138 H (65-110) mg/dL Calcium 9.0 8.8 (8.4-10.2) mg/dL Total Bilirubin 1.3 1.6 H (0.2-1.3) mg/dL AST 26 48 (17-59) U/L ALT 27 25 (6-50) U/L Alkaline Phosphatase 62 61 (38-126) U/L Total Protein 7.4 6.6 (6.3-8.2) g/dL Albumin 4.1 3.6 (3.5-5.1) g/dL All other labs normal. <Bayron Sheridan, DO - Last Filed: 04/28/25 07:39> Imaging Additional studies: ITS Impressions Chest/Abdomen/Pelvis CTA 04/27/25 19:26 IMPRESSION: CHEST- 1. No acute cardiopulmonary findings. 2. 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 (Previous reported measurement of 4.8 cm inaccurate) ABDOMEN/PELVIS- 1. Sigmoid diverticulitis, complicated by perforation. No abscess. 2. No other acute abnormality. <Mik Morales, DO - Last Filed: 04/28/25 12:54>
--- NOTE | 2025-04-28 07:35 | P.PNIM_ITS ---
Progress Note: A&P Assessment and Plan (1) SIRS (systemic inflammatory response syndrome): Code(s): R65.10 - Systemic inflammatory response syndrome (SIRS) of non-infectious origin without acute organ dysfunction Status: Acute Assessment and Plan: Patient met SIRS criteria at due to a heart rate greater than 90 and a WBC greater than 12. However lactic 1.6. Blood cultures obtained on 04/27, follow. No hemodynamic instability observed. Extremities warm and dry with adequate perfusion. Infectious source: Diverticulitis with complication, see below. - trend WBC - monitor hemodynamic stability - IV fluids: 1L bolus -> 125 mL/hr - AM labs (2) Perforation of sigmoid colon due to diverticulitis: Code(s): K57.20 - Diverticulitis of large intestine with perforation and abscess without bleeding Status: Acute Assessment and Plan: Presented to [facility] on 04/27 with central/lower abdominal pain with some radiation into his bilateral groin without associated swelling or pain in his testicles. CT abd/pelvis (04/27) showed a fusiform ectasia of the ascending thoracic aorta, 4.5 cm not significantly changed and sigmoid diverticulitis complicated by perforation without abscess. - started on Cipro and Flagyl in the emergency department, transition to Zosyn per general surgery recommendations - general surgery consulted, no surgical intervention indicated at this time, continue conservative treatment for now - IV fluids: 1L bolus, now on 125 mL/hr - clear liquid diet ADAT to low fiber diet - pain medication p.r.n. and antiemetic p.r.n. - daily clinical reassessment for improvement - trend white count, electrolytes, and magnesium - tenderness to palpation in RLQ - AM labs (3) Infrarenal abdominal aortic aneurysm (AAA) without rupture: Code(s): I71.43 - Infrarenal abdominal aortic aneurysm, without rupture Status: Acute Assessment and Plan: Patient has history of infrarenal AAA. [facility] of the abdomen/pelvis showed a fusiform ectasia of ascending thoracic aorta 4.5 cm not significantly changed (previously reported measurement of 4.8 cm, inaccurate). - continue Coreg Plan Diet: Clear liquid ADAT to low fiber GI Prophylaxis: Omeprazole p.o. DVT Prophylaxis: SCDs IV fluids: 1L bolus -> 125 mL/hr Lines/Tubes: Peripheral IV Code Status: Full code Subjective Date/time seen: 04/28/25 07:35 Interval history: Patient seen for a follow up visit. Patient lying in bed, in no acute distress. Patient reports some pain when he had a full bladder overnight, but otherwise reports pain is improved. Patient does have tenderness in RLQ on palpation. Patient continues on IV Zosyn. General Surgery consulted and patient seen this morning. No surgical intervention recommended at this time. Continue conservative treatment with close monitoring at this time. Patient tolerating clear liquid diet without pain. General surgery recommends to advance diet as tolerated to low fiber diet. Barbara's WBC count today is 14.6, increased from 12.3 yesterday. Review of Systems Review of Systems: All systems reviewed & are unremarkable except as noted in HPI and below Exam Const: General: comfortable and no acute distress Other: , male, nontoxic appearance HENMT: Face/Nose/Sinus: Normal nares present Mouth: Yes moist mucous membranes Eyes: General: appearance normal, both eyes and all related structures Sclera: sclerae normal Pupils: Equal, round and reactive pupils present EOM: EOMs intact bilaterally Resp: Effort & Inspection: normal respiratory effort Auscultation: clear to auscultation bilaterally Cardio: Rate: regular rate Rhythm: regular rhythm GI: GI Palp: Yes Soft to palpation Auscultation: normal bowel sounds : Other: tenderness in RLQ, no signs of acute abdomen Skin: General skin exam: normal color and no rashes or lesions noted Wounds: no wounds Neuro: Cranial nerves: Yes Equal, round and reactive pupils present Speech: normal speech Motor exam (neuro): 5/5 motor strength present throughout Sensory Exam: normal sensation Other: A&O x4 Extrem: General: normal to inspection Psych: Mental Status: mental status grossly normal Affect: normal affect Other: t Objective Data Vital Signs Vital Signs: Vital Signs - 24 hr 04/27/25 17:37 04/27/25 17:59 04/27/25 18:01 Temperature 98.3 F Pulse Rate 98 95 96 Respiratory Rate 16 18 21 H Blood Pressure 124/73 116/77 114/78 Pulse Oximetry 97 93 92 Oxygen Delivery Room Air 04/27/25 18:14 04/27/25 18:16 04/27/25 18:31 Temperature Pulse Rate 100 98 99 Respiratory Rate 14 15 14 Blood Pressure 116/79 116/79 111/82 Pulse Oximetry 95 94 95 Oxygen Delivery Room Air 04/27/25 19:00 04/27/25 19:18 04/27/25 19:19 Temperature Pulse Rate 97 95 95 Respiratory Rate 12 22 H 22 H Blood Pressure 138/78 Pulse Oximetry 94 97 96 Oxygen Delivery 04/27/25 19:30 04/27/25 19:31 04/27/25 19:45 Temperature Pulse Rate 95 95 95 Respiratory Rate 21 H 22 H 21 H Blood Pressure 133/77 Pulse Oximetry 95 95 94 Oxygen Delivery 04/27/25 19:46 04/27/25 20:01 04/27/25 20:02 Temperature Pulse Rate 95 98 97 Respiratory Rate 23 H 18 14 Blood Pressure 135/80 121/79 Pulse Oximetry 95 96 96 Oxygen Delivery 04/27/25 20:18 04/27/25 20:30 04/27/25 21:00 Temperature Pulse Rate 94 94 97 Respiratory Rate 14 19 19 Blood Pressure Pulse Oximetry 94 94 95 Oxygen Delivery 04/27/25 21:01 04/27/25 21:15 04/27/25 21:30 Temperature Pulse Rate 94 94 93 Respiratory Rate 15 20 19 Blood Pressure 121/78 Pulse Oximetry 97 95 95 Oxygen Delivery 04/27/25 22:00 04/27/25 23:00 04/28/25 04:30 Temperature 98.2 F 97.8 F Pulse Rate 95 95 99 Respiratory Rate 20 20 18 Blood Pressure 118/72 111/63 Pulse Oximetry 98 98 93 Oxygen Delivery Room Air Intake/Output Intake/Output: Intake & Output 04/25/25 04/26/25 04/27/25 04/28/25 23:59 23:59 23:59 23:59 Intake Total 1130 225 Balance 1130 225 Meds/Results Medications: Active Medications Generic Name Dose Route Start Last Admin Trade Name Freq PRN Reason Stop Dose Admin Acetaminophen 650 mg 04/27/25 20:35 04/27/25 21:41 Acetaminophen 325 Mg Tablet PO 650 mg Q4H PRN Administration Mild Pain (1-3) or Fever Carvedilol 25 mg 04/27/25 22:15 04/27/25 22:42 Carvedilol 25 Mg Tablet PO 25 mg Q12HR GERALD Administration Fentanyl Citrate 50 mcg 04/27/25 20:35 04/28/25 01:27 Fentanyl Citrate Inj (*Crx) 100 Mcg/2 Ml Vial IV PUSH 50 mcg Q2H PRN Administration Pain Rated 7-10 Lactated Ringer's 1,000 mls @ 125 mls/hr 04/27/25 20:35 04/27/25 21:22 Lr - Lactated Ringers Iv IV CONT 125 mls/hr .Q8H GERALD Administration Piperacillin Sod/Tazobactam 100 mls @ 200 mls/hr 04/28/25 06:00 04/28/25 05:27 Sod 4.5 gm/ Sodium Chloride IVPB 200 mls/hr Q8H GERALD Administration Morphine Sulfate 2 mg 04/27/25 22:10 Morphine Sulfate (*Crx) 4 Mg/Ml Inj IV PUSH Q4H PRN Pain Rated 4-6 Naloxone HCl 0.1 mg 04/27/25 22:10 Naloxone Hcl 0.4 Mg/Ml Vial IV PUSH Q5MIN PRN Sedation Ondansetron HCl 4 mg 04/27/25 20:35 Ondansetron Inj 4 Mg/2 Ml Vial IV PUSH Q4H PRN Nausea Pantoprazole Sodium 40 mg 04/28/25 06:30 04/28/25 05:26 Pantoprazole 40 Mg Tablet PO 40 mg DAILY@0630 GERALD Administration Radiology Results: ITS Impressions Chest/Abdomen/Pelvis CTA 04/27/25 19:26 IMPRESSION: CHEST- 1. No acute cardiopulmonary findings. 2. 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 (Previous reported measurement of 4.8 cm inaccurate) ABDOMEN/PELVIS- 1. Sigmoid diverticulitis, complicated by perforation. No abscess. 2. No other acute abnormality. Labs Labs: Laboratory Results - last 24 hr 04/27/25 04/28/25 18:30 05:20 WBC 12.3 H 14.6 H RBC 5.47 5.03 Hgb 14.7 13.4 L Hct 44.7 41.8 L MCV 81.7 83.1 MCH 26.9 26.6 MCHC 32.9 32.1 RDW 14.2 14.4 Plt Count 239 233 MPV 9.5 9.9 Immature Gran % (Auto) 0.2 0.4 Neut % (Auto) 81.2 H 83.2 H Lymph % (Auto) 7.7 L 6.6 L [place] % (Auto) 10.5 H 9.4 H Eos % (Auto) 0.2 0.1 Baso % (Auto) 0.2 0.3 Lymph # (Auto) 0.95 0.96 [place] # (Auto) 1.3 H 1.4 H Eos # (Auto) 0.0 0.0 Baso # (Auto) 0.0 0.0 Abs Immat Gran (auto) 0.03 0.06 H Absolute Neuts (auto) 10.0 H 12.2 H Absolute Nucleated RBC 0.000 0.000 Nucleated RBC % 0.0 0.0 PT 14.0 INR 1.1 APTT 29.0 Sodium 132 L 132 L Potassium 4.1 3.9 Chloride 100 100 Carbon Dioxide 26 24 Anion Gap 6 8 BUN 18 16 Creatinine 1.04 1.06 Estim Creat Clear Calc 96 94 Estimated GFR > 60 > 60 Glucose 111 H 138 H Lactic Acid 1.6 Calcium 9.0 8.8 Magnesium 1.9 Total Bilirubin 1.3 1.6 H AST 26 48 ALT 27 25 Alkaline Phosphatase 62 61 Total Protein 7.4 6.6 Albumin 4.1 3.6 Lipase 28 Quality VTE Prophylaxis VTE prophylaxis: mechanical ordered
[2025-04-28 08:15] VITALS: PULSE 99
[2025-04-28 14:00] VITALS: BP 116/64; PULSE 90; RESP 18; TEMP 37.8; O2SAT 96
[2025-04-28 14:59] VITALS: TEMP 37.8
[2025-04-28] MEDS: ACETAMINOPHEN 325 MG TABLET 650 MG PO (14:59)
[2025-04-28] MEDS: LACTATED RINGERS 1,000 ML 125 ML IV CONT (15:26)
[2025-04-28 22:00] VITALS: BP 126/71; PULSE 83; RESP 14; TEMP 36.8; O2SAT 94
[2025-04-29] MEDS: LACTATED RINGERS 1,000 ML 125 ML IV CONT (00:12)
[2025-04-29] MEDS: PIPERACILLIN/TAZOBACTAM SOD 4.5 GM in SODIUM CHLORIDE 0.9% IV 100 ML 200 ML IVPB (05:06)
[2025-04-29] MEDS: PANTOPRAZOLE 40 MG TABLET PO (05:36)
[2025-04-29 05:50] LABS: Hematocrit 38.4 % (42.0-52.0); Hemoglobin 12.3 g/dL (14.0-18.0); Immature Granulocyte Percent A 0.5 % (0-0.5); Lymphocytes Absolute Auto 1.15 K/mm3 (0.9-3.2); Mean Corpuscular HGB Conc 32.0 g/dl (32-36); Mean Corpuscular Hemoglobin 26.9 pg (26-34); Mean Corpuscular Volume 84.0 fl (80-100); Nucleated Red Blood Cells Absolute Auto 0.000 K/mm3 (0.0-0.012); Nucleated Red Blood Cells Perc 0.0 % (0.0-0.2); Platelet Count Result 193 k/mm3 (150-375); Red Blood Count 4.57 M/mm3 (4.6-6.20); White Blood Count 9.6 K/mm3 (4.5-10.0)
[2025-04-29 06:00] VITALS: BP 111/70; PULSE 78; RESP 14; TEMP 36.4; O2SAT 92
[2025-04-29 06:22] LABS: Alanine Aminotransferase 20 U/L (6-50); Albumin Level 3.2 g/dL (3.5-5.1); Alkaline Phosphatase 57 U/L (38-126); Anion Gap 6 mmol/L (4-12); Aspartate Amino Transferase 30 U/L (17-59); Bilirubin,Total 1.0 mg/dL (0.2-1.3); Blood Urea Nitrogen 11 mg/dL (9-20); Calcium 8.4 mg/dL (8.4-10.2); Carbon Dioxide 26 mmol/L (22-30); Chloride 103 mmol/L (98-107); Estimated CRCL calculation 93 ml/min; Estimated Glomerular Filt Rate > 60; Glucose 136 mg/dL (65-110); Potassium 3.9 mmol/L (3.4-5.0); Sodium 135 mmol/L (137-145); Total Protein 6.3 g/dL (6.3-8.2)
--- NOTE | 2025-04-29 07:07 | PM.IMPN ---
Progress Note: A&P Assessment and Plan (1) SIRS (systemic inflammatory response syndrome): Code(s): R65.10 - Systemic inflammatory response syndrome (SIRS) of non-infectious origin without acute organ dysfunction Status: Acute Assessment and Plan: Patient met SIRS criteria at due to a heart rate greater than 90 and a WBC greater than 12. However lactic 1.6. Blood cultures obtained on 04/27, follow. No hemodynamic instability observed. Extremities warm and dry with adequate perfusion. Infectious source: Diverticulitis with complication, see below. - trend WBC - monitor hemodynamic stability - IV fluids: 1L bolus -> 125 mL/hr - AM labs (2) Perforation of sigmoid colon due to diverticulitis: Code(s): K57.20 - Diverticulitis of large intestine with perforation and abscess without bleeding Status: Acute Assessment and Plan: Presented to [facility] on 04/27 with central/lower abdominal pain with some radiation into his bilateral groin without associated swelling or pain in his testicles. CT abd/pelvis (04/27) showed a fusiform ectasia of the ascending thoracic aorta, 4.5 cm not significantly changed and sigmoid diverticulitis complicated by perforation without abscess. - started on Cipro and Flagyl in the emergency department, transition to Zosyn per general surgery recommendations - general surgery consulted, no surgical intervention indicated at this time, continue conservative treatment for now - IV fluids: 1L bolus, now on 125 mL/hr - clear liquid diet ADAT to low fiber diet - pain medication p.r.n. and antiemetic p.r.n. - daily clinical reassessment for improvement - trend white count, electrolytes, and magnesium - tenderness to palpation in RLQ - AM labs (3) Infrarenal abdominal aortic aneurysm (AAA) without rupture: Code(s): I71.43 - Infrarenal abdominal aortic aneurysm, without rupture Status: Acute Assessment and Plan: Patient has history of infrarenal AAA. [facility] of the abdomen/pelvis showed a fusiform ectasia of ascending thoracic aorta 4.5 cm not significantly changed (previously reported measurement of 4.8 cm, inaccurate). - continue Coreg Plan Diet: Clear liquid ADAT to low fiber GI Prophylaxis: Omeprazole p.o. DVT Prophylaxis: SCDs IV fluids: 1L bolus -> 125 mL/hr Lines/Tubes: Peripheral IV Code Status: Full code Subjective Date/time seen: 04/29/25 07:07 Review of Systems Review of Systems: All systems reviewed & are unremarkable except as noted in HPI and below Exam Const: General: comfortable and no acute distress Other: , male, nontoxic appearance HENMT: Face/Nose/Sinus: Normal nares present Mouth: Yes moist mucous membranes Eyes: General: appearance normal, both eyes and all related structures Sclera: sclerae normal Pupils: Equal, round and reactive pupils present EOM: EOMs intact bilaterally Resp: Effort & Inspection: normal respiratory effort Auscultation: clear to auscultation bilaterally Cardio: Rate: regular rate Rhythm: regular rhythm GI: GI Palp: Yes Soft to palpation Auscultation: normal bowel sounds : Other: tenderness in RLQ, no signs of acute abdomen Skin: General skin exam: normal color and no rashes or lesions noted Wounds: no wounds Neuro: Cranial nerves: Yes Equal, round and reactive pupils present Speech: normal speech Motor exam (neuro): 5/5 motor strength present throughout Sensory Exam: normal sensation Other: A&O x4 Extrem: General: normal to inspection Psych: Mental Status: mental status grossly normal Affect: normal affect Other: t Objective Data Vital Signs Vital Signs: Vital Signs - 24 hr 04/28/25 08:00 04/28/25 08:15 04/28/25 14:00 Temperature 100.0 F H Pulse Rate 99 90 Respiratory Rate 18 Blood Pressure 116/64 Pulse Oximetry 96 Oxygen Delivery Room Air 04/28/25 14:59 04/28/25 20:00 04/28/25 22:00 Temperature 100.0 F H 98.2 F Pulse Rate 83 Respiratory Rate 14 Blood Pressure 126/71 Pulse Oximetry 94 Oxygen Delivery Room Air 04/29/25 06:00 Temperature 97.5 F L Pulse Rate 78 Respiratory Rate 14 Blood Pressure 111/70 Pulse Oximetry 92 Oxygen Delivery Intake/Output Intake/Output: Intake & Output 04/26/25 04/27/25 04/28/25 04/29/25 23:59 23:59 23:59 23:59 Intake Total 1130 3479 550 Balance 1130 3479 550 Meds/Results Medications: Active Medications Generic Name Dose Route Start Last Admin Trade Name Freq PRN Reason Stop Dose Admin Acetaminophen 650 mg 04/27/25 20:35 04/28/25 14:59 Acetaminophen 325 Mg Tablet PO 650 mg Q4H PRN Administration Mild Pain (1-3) or Fever Carvedilol 25 mg 04/27/25 22:15 04/28/25 23:20 Carvedilol 25 Mg Tablet PO 25 mg Q12HR GERALD Administration Fentanyl Citrate 50 mcg 04/27/25 20:35 04/28/25 01:27 Fentanyl Citrate Inj (*Crx) 100 Mcg/2 Ml Vial IV PUSH 50 mcg Q2H PRN Administration Pain Rated 7-10 Piperacillin Sod/Tazobactam 100 mls @ 200 mls/hr 04/28/25 06:00 04/29/25 05:06 Sod 4.5 gm/ Sodium Chloride IVPB 200 mls/hr Q8H GERALD Administration Morphine Sulfate 2 mg 04/27/25 22:10 Morphine Sulfate (*Crx) 4 Mg/Ml Inj IV PUSH Q4H PRN Pain Rated 4-6 Naloxone HCl 0.1 mg 04/27/25 22:10 Naloxone Hcl 0.4 Mg/Ml Vial IV PUSH Q5MIN PRN Sedation Ondansetron HCl 4 mg 04/27/25 20:35 Ondansetron Inj 4 Mg/2 Ml Vial IV PUSH Q4H PRN Nausea Pantoprazole Sodium 40 mg 04/28/25 06:30 04/29/25 05:36 Pantoprazole 40 Mg Tablet PO 40 mg DAILY@0630 GERALD Administration Radiology Results: ITS Impressions Chest/Abdomen/Pelvis CTA 04/27/25 19:26 IMPRESSION: CHEST- 1. No acute cardiopulmonary findings. 2. 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 (Previous reported measurement of 4.8 cm inaccurate) ABDOMEN/PELVIS- 1. Sigmoid diverticulitis, complicated by perforation. No abscess. 2. No other acute abnormality. Labs Labs: Laboratory Results - last 24 hr 04/29/25 05:23 WBC 9.6 RBC 4.57 L Hgb 12.3 L Hct 38.4 L MCV 84.0 MCH 26.9 MCHC 32.0 RDW 14.3 Plt Count 193 MPV 9.5 Immature Gran % (Auto) 0.5 Neut % (Auto) 76.0 H Lymph % (Auto) 12.0 L [place] % (Auto) 9.8 H Eos % (Auto) 1.4 Baso % (Auto) 0.3 Lymph # (Auto) 1.15 [place] # (Auto) 0.9 H Eos # (Auto) 0.1 Baso # (Auto) 0.0 Abs Immat Gran (auto) 0.05 H Absolute Neuts (auto) 7.3 H Absolute Nucleated RBC 0.000 Nucleated RBC % 0.0 Sodium 135 L Potassium 3.9 Chloride 103 Carbon Dioxide 26 Anion Gap 6 BUN 11 D Creatinine 1.07 Estim Creat Clear Calc 93 Estimated GFR > 60 Glucose 136 H Calcium 8.4 Total Bilirubin 1.0 AST 30 ALT 20 Alkaline Phosphatase 57 Total Protein 6.3 Albumin 3.2 L Quality VTE Prophylaxis VTE prophylaxis: mechanical ordered
--- NOTE | 2025-04-29 07:49 | P.PNGS_ITS ---
Progress Note: A&P Assessment and Plan (1) Perforation of sigmoid colon due to diverticulitis: Code(s): K57.20 - Diverticulitis of large intestine with perforation and abscess without bleeding Status: Acute Assessment and Plan: -I personally reviewed the CT abdomen and pelvis, there does appear to be a small amount of free intraperitoneal air, this appears to be contained within the mesentery. There was no evidence of abscess or free fluid collection within the abdomen. The patient's abdomen is soft and minimally tender, he continues to improve clinically. He does not exhibit any peritoneal signs. His vital signs are stable. He has tolerated liquids, advancing to low residue diet. maintain a low-fiber diet during acute flare, high-fiber diet after acute flare, continue antibiotics. -hospitalist admission -low residue diet -Can transition to PO abx, continue -no acute surgical intervention -Okay to discharge from general surgery standpoint A&P discussed with Dr. Morales Subjective Subjective Date/Time Seen: 04/29/25 07:49 Interval history: NAEON. Pain much improved today. VSS. Afebrile. WBC normal this am. Tolerated FLD yesterday, advancing to low residue diet today. Abdomen minimally TTP in low pelvic region. Review of Systems Review of Systems: All systems reviewed & are unremarkable except as noted in HPI and below Exam Narrative: General: Awake, alert, no acute distress HEENT: NC/AT, EOMI, mucous membranes moist and pink Neck: No masses or swelling, no JVD Heart: Regular rate, HDS Lungs: Symmetric expansion, no IWOB, on RA Abdomen: Soft, minimally TTP in LLQ/low pelvis, nondistended, non peritoneal Extremities: Moves all, normal inspection Psych: Normal affect, normal mood, normal judgment Objective Data Vital Signs Vital Signs: Vital Signs - 24 hr 04/28/25 08:00 04/28/25 08:15 04/28/25 14:00 Temperature 100.0 F H Pulse Rate 99 90 Respiratory Rate 18 Blood Pressure 116/64 Pulse Oximetry 96 Oxygen Delivery Room Air 04/28/25 14:59 04/28/25 20:00 04/28/25 22:00 Temperature 100.0 F H 98.2 F Pulse Rate 83 Respiratory Rate 14 Blood Pressure 126/71 Pulse Oximetry 94 Oxygen Delivery Room Air 04/29/25 06:00 Temperature 97.5 F L Pulse Rate 78 Respiratory Rate 14 Blood Pressure 111/70 Pulse Oximetry 92 Oxygen Delivery Intake/Output Intake/Output: Intake & Output 04/26/25 04/27/25 04/28/25 04/29/25 23:59 23:59 23:59 23:59 Intake Total 1130 3479 550 Balance 1130 3479 550 Meds/Results Medications: Active Medications Generic Name Dose Route Start Last Admin Trade Name Freq PRN Reason Stop Dose Admin Acetaminophen 650 mg 04/27/25 20:35 04/28/25 14:59 Acetaminophen 325 Mg Tablet PO 650 mg Q4H PRN Administration Mild Pain (1-3) or Fever Carvedilol 25 mg 04/27/25 22:15 04/28/25 23:20 Carvedilol 25 Mg Tablet PO 25 mg Q12HR GERALD Administration Fentanyl Citrate 50 mcg 04/27/25 20:35 04/28/25 01:27 Fentanyl Citrate Inj (*Crx) 100 Mcg/2 Ml Vial IV PUSH 50 mcg Q2H PRN Administration Pain Rated 7-10 Piperacillin Sod/Tazobactam 100 mls @ 200 mls/hr 04/28/25 06:00 04/29/25 05:06 Sod 4.5 gm/ Sodium Chloride IVPB 200 mls/hr Q8H GERALD Administration Morphine Sulfate 2 mg 04/27/25 22:10 Morphine Sulfate (*Crx) 4 Mg/Ml Inj IV PUSH Q4H PRN Pain Rated 4-6 Naloxone HCl 0.1 mg 04/27/25 22:10 Naloxone Hcl 0.4 Mg/Ml Vial IV PUSH Q5MIN PRN Sedation Ondansetron HCl 4 mg 04/27/25 20:35 Ondansetron Inj 4 Mg/2 Ml Vial IV PUSH Q4H PRN Nausea Pantoprazole Sodium 40 mg 04/28/25 06:30 04/29/25 05:36 Pantoprazole 40 Mg Tablet PO 40 mg DAILY@0630 GERALD Administration Radiology Results: ITS Impressions Chest/Abdomen/Pelvis CTA 04/27/25 19:26 IMPRESSION: CHEST- 1. No acute cardiopulmonary findings. 2. 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 (Previous reported measurement of 4.8 cm inaccurate) ABDOMEN/PELVIS- 1. Sigmoid diverticulitis, complicated by perforation. No abscess. 2. No other acute abnormality. Labs Labs: Laboratory Results - last 24 hr 04/29/25 05:23 WBC 9.6 RBC 4.57 L Hgb 12.3 L Hct 38.4 L MCV 84.0 MCH 26.9 MCHC 32.0 RDW 14.3 Plt Count 193 MPV 9.5 Immature Gran % (Auto) 0.5 Neut % (Auto) 76.0 H Lymph % (Auto) 12.0 L [place] % (Auto) 9.8 H Eos % (Auto) 1.4 Baso % (Auto) 0.3 Lymph # (Auto) 1.15 [place] # (Auto) 0.9 H Eos # (Auto) 0.1 Baso # (Auto) 0.0 Abs Immat Gran (auto) 0.05 H Absolute Neuts (auto) 7.3 H Absolute Nucleated RBC 0.000 Nucleated RBC % 0.0 Sodium 135 L Potassium 3.9 Chloride 103 Carbon Dioxide 26 Anion Gap 6 BUN 11 D Creatinine 1.07 Estim Creat Clear Calc 93 Estimated GFR > 60 Glucose 136 H Calcium 8.4 Total Bilirubin 1.0 AST 30 ALT 20 Alkaline Phosphatase 57 Total Protein 6.3 Albumin 3.2 L
[2025-04-29 09:03] VITALS: PULSE 82
--- NOTE | 2025-04-29 10:04 | PM.DS ---
DS: Admitting Diagnosis Discharge Date 04/29/2025 Admitting Diagnosis SIRS Perforation of sigmoid colon due to diverticulitis Infrarenal abdominal aortic aneurysm without rupture DS: Discharge Diagnosis Discharge Diagnosis (1) SIRS (systemic inflammatory response syndrome): Code(s): R65.10 - Systemic inflammatory response syndrome (SIRS) of non-infectious origin without acute organ dysfunction Status: Acute Assessment and Plan: Patient met SIRS criteria at due to a heart rate greater than 90 and a WBC greater than 12. However lactic 1.6. Blood cultures obtained on 04/27, follow. No hemodynamic instability observed. Extremities warm and dry with adequate perfusion. Infectious source: Diverticulitis with complication, see below. - trend WBC, wbc WNL today - monitor hemodynamic stability - IV fluids: 1L bolus -> 125 mL/hr - appears ressolved (2) Perforation of sigmoid colon due to diverticulitis: Code(s): K57.20 - Diverticulitis of large intestine with perforation and abscess without bleeding Status: Acute Assessment and Plan: Presented to [facility] on 04/27 with central/lower abdominal pain with some radiation into his bilateral groin without associated swelling or pain in his testicles. CT abd/pelvis (04/27) showed a fusiform ectasia of the ascending thoracic aorta, 4.5 cm not significantly changed and sigmoid diverticulitis complicated by perforation without abscess. - started on Cipro and Flagyl in the emergency department, transition to Zosyn per general surgery recommendations - general surgery consulted, no surgical intervention indicated at this time, continue conservative treatment for now - IV fluids: 1L bolus, now on 125 mL/hr - clear liquid diet ADAT to low fiber diet, tolerating low fiber diet - pain medication p.r.n. and antiemetic p.r.n. - daily clinical reassessment for improvement - trend white count, electrolytes, and magnesium - no tenderness on abdominal exam today - gneral surgery okay with discharge today - PO Augmentin 875/125 mg x 8 days on discharge (3) Infrarenal abdominal aortic aneurysm (AAA) without rupture: Code(s): I71.43 - Infrarenal abdominal aortic aneurysm, without rupture Status: Acute Assessment and Plan: Patient has history of infrarenal AAA. Currently follows with vascular surgeon at [facility], Dr. Hawthorne. CT of the abdomen/pelvis showed a fusiform ectasia of ascending thoracic aorta 4.5 cm not significantly changed (previously reported measurement of 4.8 cm, inaccurate). - continue Coreg DS: Summary Hospital Course Reason for hospitalization: abdominal pain Hospital Course: The patient is a 49-year-old male with a history of infrarenal abdominal aortic aneurysm under surveillance, AICD placement, cardiac arrest, gastritis, and GERD, who presented with acute onset of central and lower abdominal pain radiating to the groin. On admission, he was hemodynamically stable and afebrile, with laboratory studies notable for leukocytosis and mild hyponatremia. CTA of the chest, abdomen, and pelvis revealed sigmoid diverticulitis complicated by a contained perforation, without abscess or free fluid, and stable aortic ectasia. He was started on IV antibiotics and IV fluids, and general surgery was consulted. The patient remained clinically stable, with no peritoneal signs and improving abdominal pain. His diet was advanced from clear liquids to a low-residue diet as tolerated. Serial labs showed normalization of the white blood cell count, and he remained afebrile and hemodynamically stable throughout his stay. No surgical intervention was required, and he was transitioned to oral antibiotics for completion of therapy. He was discharged in stable condition with instructions to complete an 8-day course of amoxicillin-clavulanate and to follow up with his vascular surgeon for ongoing AAA surveillance. Time Spent with Patient Time attestation: Total time spent providing and/or coordinating discharge services: 35 Minutes Exam Const: Other: , male, nontoxic appearance Cardio: Other: S1-S2 present without murmur, rub, ectopy GI: Other: Abdomen soft, nondistended. Normoactive bowel sounds. Non-tender to palpation Neuro: Other: A&O x4 DS: Data Data Completed and Pending Labs on day of discharge: Labs from last 24 hours 04/29/25 05:23 WBC 9.6 RBC 4.57 L Hgb 12.3 L Hct 38.4 L MCV 84.0 MCH 26.9 MCHC 32.0 RDW 14.3 Plt Count 193 MPV 9.5 Immature Gran % (Auto) 0.5 Neut % (Auto) 76.0 H Lymph % (Auto) 12.0 L [place] % (Auto) 9.8 H Eos % (Auto) 1.4 Baso % (Auto) 0.3 Lymph # (Auto) 1.15 [place] # (Auto) 0.9 H Eos # (Auto) 0.1 Baso # (Auto) 0.0 Abs Immat Gran (auto) 0.05 H Absolute Neuts (auto) 7.3 H Absolute Nucleated RBC 0.000 Nucleated RBC % 0.0 Sodium 135 L Potassium 3.9 Chloride 103 Carbon Dioxide 26 Anion Gap 6 BUN 11 D Creatinine 1.07 Estim Creat Clear Calc 93 Estimated GFR > 60 Glucose 136 H Calcium 8.4 Total Bilirubin 1.0 AST 30 ALT 20 Alkaline Phosphatase 57 Total Protein 6.3 Albumin 3.2 L Imaging Radiologist's impression: CT Scan Report Signed Patient: Prasanna Kumar : 1975 MR#: [id number] Age: 49 Acct:[id number] Loc: [facility] ADM Date: 04/27/[address]: Ordering Physician: Demetrio Garcia MD Date of Service: 04/27/25 Procedure(s): CTA chest abdomen pelvis Accession Number(s): [id number] cc: Demetrio Garcia MD~ CTA CHEST ABDOMEN PELVIS CLINICAL HISTORY: hx infrarenal AAA, lower abdominal pain . COMPARISON: CTA chest 01/05/2019 TECHNIQUE: Helical CT performed from thoracic inlet to symphysis pubis IV contrast information not listed in PACS Coronal, sagittal reformats. Multiplanar MIPS CT images acquired with automatic exposure control for dose reduction DLP: 971 mGy-cm FINDINGS: CHEST- Thoracic Aorta: No dissection. Fusiform ectasia of ascending segment at 4.5 cm. Pulmonary arteries: Normal caliber. Lungs/Pleura: Clear. Heart: Unremarkable. Tracheobronchial tree: Patent. Nodes: No enlarged nodes. Bones: No acute bony abnormality. Soft tissues: Unremarkable. ABDOMEN/PELVIS- CTA Abdominal aorta: No aneurysm or dissection. Common iliac arteries: Patent. External iliac arteries: Patent. Hypogastric arteries: Patent. CFAs: Patent. Proximal visualized SFAs and profundas: Patent. Celiac: Patent. Severe median arcuate ligament attenuation. SMA: Patent. ZENAIDA: Patent. Renal arteries: Patent. NON-CTA Liver: Steatosis. Gallbladder: Unremarkable. Spleen: Unremarkable. Pancreas: Unremarkable. Adrenal glands: Unremarkable. Kidneys: Right kidney- No hydronephrosis. No renal stones. Left kidney- No hydronephrosis. No renal stones. Circumaortic renal vein. Distal esophagus/stomach: Unremarkable. Small bowel loops: Normal caliber and wall thickness. Colon: Diverticula. Sigmoid wall thickening, surrounding inflammation, small regional free air Normal caliber and wall thickness. Normal RLQ appendix. Nodes: No enlarged nodes. Peritoneum: No ascites. No free air. Urinary bladder: Unremarkable. Prostate: Unremarkable. Bones: No acute bony abnormality. Soft tissues: Unremarkable. IMPRESSION: CHEST- 1. No acute cardiopulmonary findings. 2. 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 (Previous reported measurement of 4.8 cm inaccurate) ABDOMEN/PELVIS- 1. Sigmoid diverticulitis, complicated by perforation. No abscess. 2. No other acute abnormality. Reviewed, dictated and finalized at location R. Discharge Plan Discharge Attending physician on discharge: Paula Cutler Consulting providers: Mik Morales; Haseeb Dennis; Leonie Quinteros; Nacho Cullen Discharging Clinician: Judie Black Patient Disposition: Home Activity: as tolerated Diet: low fiber Discharge Instructions: Follow a low fiber diet during this acute flare, once feeling better and antibiotics completed switch to a high fiber diet. Complete all antibiotics even if you are feeling better. Please return to the ER if you develop chest pain, shortness of breath, fever greater than 100.4 or worsening abdominal pain. Patient Instructions: Antibiotic Form Patient Language: Bahamian Stand Alone Forms: General Discharge Information Follow-up/Referrals: Michaela,Cassi Cooper MD [Primary Care Provider, Unknown] Referral Note: Please call for an appointment to be seen in 1-2 weeks after discharge. Discharge Medications: New amoxicillin-pot clavulanate 875-125 mg tablet 1 tablet PO Q12H Qty: 16 0RF Continued carvedilol 25 mg tablet 25 mg PO BID esomeprazole magnesium [Acid [employer] Supervisor (esomeprazole)] 20 mg capsule,delayed release(DR/EC) 20 mg PO DAILY@0630 Date of admission: 04/28/25 12:08 Primary Care Provider: Michaela,Cassi Cooper Admitting Provider: Sherley Cummins Attending physician on admission: Judie Black Condition: Stable Quality VTE Prophylaxis VTE prophylaxis: mechanical ordered
== END 2025-04-29 10:25 | disposition home or self-care (01) | DRG 392 ==
LOC: ANHED 18:32 → ANH3MEDSUR 21:18
PROVIDERS: Student in an Organized Health Care Education/Training Program; Admitting Provider Internal Medicine; Emergency Provider Student in an Organized Health Care Education/Training Program; PCP Student in an Organized Health Care Education/Training Program; Visit Provider Nurse Practitioner Adult Health
DX: K57.20 Diverticulitis of large intestine with perforation and abscess without bleeding (principal); I77.810 Thoracic aortic ectasia; K21.9 Gastro-esophageal reflux disease without esophagitis; F10.90 Alcohol use, unspecified, uncomplicated; Z95.810 Presence of automatic (implantable) cardiac defibrillator; Z86.74 Personal history of sudden cardiac arrest; Z86.79 Personal history of other diseases of the circulatory system
CPT/HCPCS: 36415; 71275; 74174; 80053; 83605; 83690; 83735; 85025; 85610; 85730; 87040; 93005; 96365; 96375; 96376; 99285; A9270; G0378; J0744; J1836; J2543; J3010; J7120; Q9967